=== PATIENT | female | born 1940 | race Caucasian/White ===

== ENCOUNTER 2019-06-01 12:44 | Inpatient (IN) | payer MEDICARE, BC ==
[2019-06-01] MEDS ORDERED: NS 0.9% 1000 ML** 1,000 ML IV ONE (12:50)
--- NOTE | 2019-06-01 12:55 | ED ---
Altered Mental Status - HPI Summary HPI Summary: This pt is a 79 Y/O F brought to [facility] for AMS per EMS. She is a level 5 caveat due to her AMS and inability to accurately express her thoughts. Currently she is tachycardic and unable to communicate efficiently or follow directions. She has a PMHx of DM. - History Of Current Complaint Chief Complaint: EDAltMentalStatus Stated Complaint: AMS Time Seen by Provider: 06/01/19 12:51 Hx Obtained From: EMS Hx From Patient Unobtainable Due To: Altered Mental Status Last Known Well Date: 05/31/2019 before sleep Onset/Duration: Still Present Timing: Constant Severity Currently: None Character: Confusion Aggravating Factor(s): Unknown Alleviating Factor(s): Unknown - Allergies/Home Medications Allergies/Adverse Reactions: Allergies Allergy/AdvReac Type Severity Reaction Status Date / Time MS Naproxen [Naproxen] Allergy Severe Difficulty Verified 10/17/13 08:37 Breathing MS NSAIDs [NSAIDs] Allergy Difficulty Verified 10/17/13 08:37 Breathing Home Medications: Home Medications Albuterol HFA INHALER* [Ventolin HFA Inhaler*] 2 puff INH Q4H PRN 06/01/19 [ History Confirmed 06/01/19] Clotrimazole/Betamethasone* [Lotrisone Cream*] 1 applic TOPICAL BID 06/01/19 [ History Confirmed 06/01/19] EPINEPHrine [Epinephrine] 0.3 mg INJ ONCE PRN 06/01/19 [History Confirmed ] Fluticasone NASAL SPRAY 50MCG* [Flonase NASAL SPRAY 50MCG*] 2 spray BOTH NARES DAILY 06/01/19 [History Confirmed 06/01/19] Fluticasone-Salmeterol 250-50* [Advair Diskus 250-50*] 1 puff INH BID PRN [History Confirmed 06/01/19] Furosemide TAB* [Lasix TAB*] 20 mg PO DAILY 06/01/19 [History Confirmed 06/01/19 ] Montelukast Sodium TAB* [Singulair TAB*] 10 mg PO DAILY PRN 06/01/19 [History Confirmed 06/01/19] Nadolol (NF) 10 mg PO DAILY 06/01/19 [History Confirmed 06/01/19] Spironolactone (NF) [Spironolactone 50 MG (NF)] 50 mg PO QAM 06/01/19 [History Confirmed 06/01/19] metFORMIN* [Glucophage 1000 MG TAB *] 1,000 mg PO BID 06/01/19 [History Confirmed 06/01/19] PMH/Surg Hx/FS Hx/Imm Hx Previously Healthy: No - PT IS A LEVEL 5 CAVEAT DUE TO AMS Endocrine/Hematology History: Reports: Hx Diabetes - METFORMIN Respiratory History: Reports: Hx Asthma Musculoskeletal History: Denies: Hx Scoliosis Sensory History: Reports: Hx Contacts or Glasses, Hx Hearing Aid - BILAT Opthamlomology History: Reports: Hx Contacts or Glasses Neurological History: Denies: Hx Headaches, Other Neuro Impairments/Disorders - Surgical History Surgical History: Yes Surgery Procedure, Year, and Place: CHOLECYSTECTOMY 2010 [place]. HYSTERECTOMY WITH APPY 1983 [facility] Hx Anesthesia Reactions: No - Social History Alcohol Use: None Substance Use Type: Reports: None Review of Systems - ROS Summary Review of Systems Summary: A FULL ROS IS UNOBTAINABLE DUE TO THE PT BEING A LEVEL 5 CAVEAT FOR AMS. Positive: Palpitations - tachycardiac Psychological: Other - confused All Other Systems Reviewed And Are Negative: No Physical Exam - Summary Physical Exam Summary: VITAL SIGNS: Reviewed. GENERAL: Patient is a well-developed and nourished female who is lying comfortable in the stretcher. Patient is not in any acute respiratory distress. HEAD AND FACE: No signs of trauma. No ecchymosis, hematomas or skull depressions. No sinus tenderness. EYES: PERRLA, EOMI x 2, No injected conjunctiva, no nystagmus. EARS: Hearing grossly intact. Ear canals and tympanic membranes are within normal limits. MOUTH: Oropharynx within normal limits. Dry oral mucosa NECK: Supple, trachea is midline, no adenopathy, no JVD, no carotid bruit, no c- spine tenderness, neck with full ROM. CHEST: Symmetric, no tenderness at palpation. LUNGS: Clear to auscultation bilaterally. No wheezing or crackles. CVS: Regular rate and rhythm, S1 and S2 present, no murmurs or gallops appreciated. ABDOMEN: Soft, non-tender. No signs of distention. No rebound, no guarding, and no masses palpated. Bowel sounds are normal. EXTREMITIES: FROM in all major joints, no edema, no cyanosis or clubbing. NEURO: Alert and not oriented. No acute neurological deficits. Speech is normal and follows commands. No slurred speech, no facial drooping, extremities motor reflexes intact, moving both legs, feet, arms. SKIN: Dry and warm. RECTAL: slight amount of gross blood. GCS: 14 (See included ratings). Triage Information Reviewed: Yes Vital Signs On Initial Exam: Temp Pulse Resp BP SpO2 FiO2 94.9 F 101 22 151/109 98 06/01/19 12:46 06/01/19 12:46 06/01/19 12:46 06/01/19 12:46 06/01/19 12:46 Vital Signs Reviewed: Yes Completion Of Physical Exam Limited Due To: Altered Mental Status, Level 5 - Salome Coma Scale Best Eye Response: 4 - Spontaneous Best Motor Response: 6 - Obeys Commands Best Verbal Response: 4 - Confused Coma Scale Total: 14 Procedures - Sedation Patient Received Moderate/Deep Sedation with Procedure: No Diagnostics - Laboratory Result Diagrams: 06/01/19 13:14 06/01/19 13:14 Lab Statement: Any lab studies that have been ordered have been reviewed, and results considered in the medical decision making process. - Radiology CXR Radiology Interpretation Completed By: Radiologist Summary of Radiographic Findings: NO ACTIVE CARDIOPULMONARY DISEASE IS NOTED. ED physician has reviewed this report. - CT Brain CT CT Interpretation Completed By: Radiologist Summary of CT Findings: There is no evidence of intracranial mass or hemorrhage. - ED physician has reviewed this report. - EKG 1341 Cardiac Rate: NL - 96 BPM EKG Rhythm: Sinus Rhythm ST Segment: Normal Ectopy: None Summary of EKG Findings: An EKG at 1341 reveals normal sinus rhythm 96 BPM, nml axis, nml intervals. No STEMI. No acute changes. Poor quality EKG. Interpreted by Dr. Daniel at 1346 06/01/2019. Altered Mental Statu Course/Dx - Course Assessment/Plan: This pt is a 79 Y/O F brought to [facility] for AMS per EMS. She is a level 5 caveat due to her AMS and inability to accurately express her thoughts. Currently she is tachycardic and unable to communicate efficiently or follow directions. She has a PMHx of DM. The physical without any significant abnormality except for potassium level of 5.1, chloride 112, carbon dioxide 20, BUN is 37, creatinine 1.34, glucose 131, lactic acid is 2.5, magnesium 1.8, total bili is 1.7, AST is 43, alkaline phosphatase is 153 and ammonia level 143. Urinalysis positive nitrates. Serum alcohol is 11. Head CT shows no acute intra-abdominal pathology. Chest x-ray shows no acute pathology. In the ED course the patient was given IV fluids, she was given Rocephin for the UTI and lactulose for the hepatic encephalopathy. I discussed the case with Dr. Schaefer from the intensive care unit and he will consult for this patient. Dr. Schaefer came and assessed the patient and recommended admission to the hospitalist services. I discuss my physical exam and test results with Dr. Christian from the hospitalist services and he agrees to admit the patient to his services. The patient is hemodynamically stable - Diagnoses Provider Diagnoses: UTI (urinary tract infection), Altered mental status, Hepatic encephalopathy, Hypothermia - Provider Notifications Discussed Care Of Patient With: Martin Christian Time Discussed With Above Provider: 17:27 Instructed by Provider To: Admit As Inpatient Admit/Transition Orders Completed By ED Provider: Yes - Critical Care Time Critical Care Time: 75-104 min - 40 minutes Discharge ED - Sign-Out/Discharge Documenting (check all that apply): Patient Departure - admitted to ICU - Discharge Plan Condition: Stable Disposition: ADMITTED TO [facility] Referrals: Mauri Gautam MD [Primary Care Provider] - - Billing Disposition and Condition Condition: STABLE Disposition: Admitted to [facility] - Attestation Statements Document Initiated by Scribe: Yes Documenting Scribe: Vinh Min Provider For Whom Trisha is Documenting (Include Credential): Frank Daniel MD Scribe Attestation: IVinh, scribed for Frank Daniel MD on 06/01/19 at 1826. Scribe Documentation Reviewed: Yes Provider Attestation: The documentation as recorded by the Vinh saunders accurately reflects the service I personally performed and the decisions made by me, Frank Daniel MD Status of Scribe Document: Viewed
[2019-06-01 13:31] LABS: INR 1.17 (0.82-1.09)
[2019-06-01 13:46] LABS: ALT 28 U/L (7-52); AST 43 U/L (13-39); Albumin 3.6 g/dL (3.2-5.2); Albumin/Globulin Ratio 0.9 (1-3); Alkaline Phosphatase 153 U/L (34-104); BUN/Creatinine Ratio 27.6 (8-20); Blood Urea Nitrogen 37 mg/dL (6-24); CO2 Carbon Dioxide 20 mmol/L (22-32); Calcium 9.6 mg/dL (8.6-10.3); Creatine Kinase 86 U/L (10-223); EGFR African American 46.3 (>60); EGFR Non-African American 38.3 (>60); Globulin 3.9 g/dL (2-4); Glucose 131 mg/dL (70-100); Magnesium 1.8 mg/dL (1.9-2.7); Sodium 141 mmol/L (135-145); Total Protein 7.5 g/dL (6.4-8.9)
[2019-06-01 13:55] LABS: Anion Gap 9 mmol/L (2-11); Chloride 112 mmol/L (101-111); Potassium 5.1 mmol/L (3.5-5.0)
[2019-06-01 14:13] LABS: Acetaminophen < 15 mcg/mL; Alcohol 11 mg/dL (<10); Salicylate < 2.50 mg/dL (<30)
[2019-06-01 14:19] LABS: Urine Benzodiazepine Screen None Detected (None Detect); Urine Opiates Screen None Detected (None Detect)
[2019-06-01 14:26] LABS: TSH (Thyroid Stimulating Horm) 4.32 mcIU/mL (0.34-5.60)
[2019-06-01 14:56] LABS: ABS Eosinophils 0.2 10^3/ul (0-0.6); ABS Lymphocytes 1.1 10^3/ul (1.0-4.8); ABS Monocytes 0.7 10^3/ul (0-0.8); Eosinophil % 2.7 %; Hematocrit 36 % (35-47); Hemoglobin 12.3 g/dL (12.0-16.0); Lymphocyte % 15.8 %; Mean Corpuscular HGB Conc 35 g/dL (31-36); Mean Corpuscular Hemoglobin 38 pg (27-31); Mean Corpuscular Volume 111 fL (80-97); Mean Platelet Volume 9.4 fL (7.4-10.4); Nucleated Red Blood Cells % 0.1; Platelet Count 110 10^3/uL (150-450); Red Blood Count 3.22 10^6 /uL (3.70-4.87); Red Cell Distribution Width 15 % (10-15)
[2019-06-01 15:52] LABS: Urine Appearance Cloudy; Urine Bacteria 1+ (Absent); Urine Bilirubin Negative (Negative); Urine Blood Negative (Negative); Urine Color Yellow; Urine Glucose Negative (Negative); Urine Ketones Negative (Negative); Urine Nitrite Positive (Negative); Urine Protein Negative (Negative); Urine Red Blood Cell Absent (Absent); Urine Specific Gravity 1.013 (1.010-1.030); Urine Squamous Epithelial Cell Present (Absent); Urine Urobilinogen Negative (Negative); Urine White Blood Cell 3+(>20/hpf) (Absent)
[2019-06-01] MEDS ORDERED: cefTRIAXone(*) 1 GM in NS 0.9% 50 ML* 50 ML IVPB ONE (16:07)
--- NOTE | 2019-06-01 17:56 | PN ---
Progress Note - Progress Note Date of Service: 06/01/19 Note: Was asked to see patient to evaluate for ICU admission. 79F who lives at an assisted living facility, presents with AMS. +UTI, ammonia 143. Upon exam, she is awake, alert, oriented x 2. Exam limited by expressive aphasia. PERRL 4mm, EOMI, no facial droop, no facial anesthesia, follows commands, Strength 5/5 in all extremities. Would recommend TSH and cortisol since patient slightly hypothermic on presentation. Give lactulose, rifaximin and continue treatment for UTI. Discussed the case with both Dr Daniel and Dr Qiu that patient does not require ICU level of care. Also, patient has a cat and dog at home who need to be cared for. Asked Dr Daniel to page social work to assist her with this.
[2019-06-01 18:23] LABS: C Reactive Protein 14.42 mg/L (<8.01)
[2019-06-01] MEDS ORDERED: Morphine INJ* 2 MG/ML 1 ML SYRINGE (TWO MG - NEW SYRINGE VERSION) IV PRN (18:34)
[2019-06-01] MEDS ORDERED: Dextrose 50% Syringe 50 ML* 25 GM/50 ML SYRINGE IV PUSH PRN (18:39)
[2019-06-01] MEDS ORDERED: Montelukast Sodium TAB* 10 MG PO PRN (18:40)
[2019-06-01] MEDS ORDERED: Albuterol HFA INHALER* 8 gm MDI INH PRN (18:40)
[2019-06-01] MEDS ORDERED: Mometasone/Formoter 200/5 MDI INH PRN (21:00)
--- NOTE | 2019-06-01 21:14 | HP ---
CC: Dr. Gautam * HISTORY AND PHYSICAL: DATE OF ADMISSION: 06/01/19 PRIMARY CARE PROVIDER: Dr. Gautam. CHIEF COMPLAINT: Found down, altered. HISTORY OF PRESENT ILLNESS: Krystal Christensen is a 79-year-old female who is a resident of [facility] where she lives in an independent [facility]. The patient currently is not really able to give me any clear-cut information apart from that she had been in [facility] for the past 2 years, but initially she thought she still lives at her home. After I called [facility], I got to know that she lives in independent living. Then, I contacted the patient 's sister, Bibi, who lives in [place] who stated that the patient has had problems with chronic diarrhea and chronic liver problems, in fact she has history of liver cancer and that tumor was treated with radiation just 3 weeks ago in [place]. The patient herself is able to give me some scant information. She does remember that she had radiation to her liver tumor 3 weeks ago, but otherwise she keeps on repeating the same sentences over and over again. She apparently was found down covered in feces on the floor and she was brought into the ED for evaluation. Her ammonia level was markedly elevated over 140 and likely her mentation is affected by hepatic encephalopathy. Her alcohol level in the serum is 11, but the patient adamantly denies that she ever drank alcohol and her sister agrees with that. I suspect that the alcohol level was elevated due to the way the sample was taken. The patient is going to be admitted with a diagnosis of hepatic encephalopathy to the medical floor. PAST MEDICAL HISTORY: Please note that this was obtained from very scant medical records that I have from [facility] and does include: 1. Diabetes type 2. 2. History of frequent UTIs. 3. Hypertension. 4. Hyperlipidemia. 5. Functional dyspepsia. 6. Hearing loss in the right ear. 7. Hypothyroidism. 8. Portal hypertension. 9. History of nonalcoholic steatohepatitis. 10. Asthma. 11. Generalized muscle weakness. 12. Low back pain. 13. Liver cancer, status post recent radiation. MEDICATIONS AT HOME: Include: 1. Clotrimazole with betamethasone cream topical b.i.d. 2. Furosemide 20 mg daily. 3. Metformin 1000 mg b.i.d. 4. Aldactone 50 mg daily. 5. Albuterol inhaler on a p.r.n. basis. 6. Flonase nasal spray on a p.r.n. basis. 7. Advair Diskus 250/50 one inhalation b.i.d. 8. Singulair 10 mg daily. 9. Nadolol 10 mg daily. FAMILY HISTORY: Unable to obtain due to the patient being altered. SOCIAL HISTORY: The patient denies drinking alcohol. She cannot tell me or elaborate about her smoking history. From what I was able to find out from calling the patient's assisted living residency. The patient actually is in an independent living [facility]. Her healthcare proxy, her sister, Deanna Carrillo, lives in [place]. Her phone number is [phone]. The patient is a full code. REVIEW OF SYSTEMS: Please see history of present illness. Otherwise, unobtainable. The patient currently denies any pain, but otherwise she is not a historian that is able to provide me with any other information. PHYSICAL EXAMINATION GENERAL: The patient is a pleasant 79-year-old female, who is in no acute distress. The patient is alert and oriented. Actually, she is able to give me the date that it is May of 2019. She is not really sure where she is. She does not remember where she lives, but when I prompted her, she was able to tell me that she has been staying at [facility] for the past 2 years. She is unable to tell me if it is independent living though. She is unable to give her sister's and healthcare proxy's name. She keeps on repeating the same information over and over again. When I asked about the date, she keeps on repeating May 2019. VITAL SIGNS: Blood pressure 137/84, heart rate of 96 and regular, respiratory rate 14, oxygen saturation 96% on room air, temperature of 99.0. Please also note that the patient was hypothermic when she arrived to the hospital with a temperature of 94.9 and she was treated with a Kamran Hugger. HEENT: Head: Atraumatic, normocephalic. Eyes: Pupils are equal, reactive to light and accommodation. Oropharynx is clear. Mucosa dry. NECK: Supple. No JVD. No bruits bilaterally. RESPIRATORY: Clear to auscultation bilaterally. CARDIOVASCULAR: Regular rate and rhythm. No murmur. ABDOMEN: Soft, nontender. Bowel sounds are present in all 4 quadrants. No hepatomegaly on palpation. EXTREMITIES: There is trace pedal edema bilaterally. Pulses are +2 bilaterally. There is no clubbing or cyanosis. NEUROLOGIC: Speech is clear. Cranial nerves II through XII grossly intact. Motor strength is 5/5 bilaterally. SKIN: On evaluation of the skin, no ecchymotic areas or rashes noted. DIAGNOSTIC STUDIES/LAB DATA: Please note that the patient is being admitted currently at around 7 p.m. and the labs were obtained at 1 p.m. and they showed sodium of 141, potassium 5.1, chloride 112, carbon dioxide 20, BUN 37, creatinine 1.34. Liver function tests showed bilirubin of 1.7, AST of 43, ALT of 28, alkaline phosphatase of 133. Those are consistent with prior reports from 2018. Lactic acid was elevated at 2.5. Ammonia of 143. TSH was 4.32. INR was noted to be 1.17. ABG showed pH of 7.44, pCO2 of 27, pO2 of 103, bicarb of 21.5. CBC: White blood cell count of 7.0, hemoglobin of 12.3, hematocrit of 36, and platelets of 110, which is consistent with prior chronic thrombocytopenia. MCV was 111. Toxicology screen was positive for serum alcohol of 11. Once again, it is likely a draw error. The patient's salicylates and acetaminophen below detectable. Urine drug screen was negative. Urinalysis showed cloudy urine with esterase of +2, wbc's +3, nitrite positive, positive bacteria. The patient's chest x-ray reviewed by myself and shows very poor inspiration and impression by the radiologist is "no active cardiopulmonary disease noted." The patient's brain CT also showed no abnormalities. EKG is pending at the time of dictation. The patient also was ordered CT of the abdomen and pelvis without contrast to rule out hydronephrosis and to evaluate for liver abnormalities. That is pending at the time of dictation also. ASSESSMENT AND PLAN: 1. Altered mentation. It is likely due to combination of hepatic encephalopathy and septic encephalopathy from urinary tract infection. She is going to be placed on lactulose and rifaximin. The patient also appears markedly dehydrated. Her diuretics are going to be held and she is going to be placed on intravenous hydration. 2. The patient appears to have a urinary tract infection and she is going to be placed on ceftriaxone empirically. She meets severe sepsis criteria. She is going to receive intravenous fluids. Blood cultures were already obtained. We will reevaluate with repeat lactic acid currently. 3. The patient has chronic thrombocytopenia with platelet level of 111. Nevertheless, we are able to place her on heparin subcutaneously for DVT prophylaxis. 4. The patient has acute renal failure likely due to sepsis and dehydration. Creatinine is 1.34. We will continue intravenous hydration and repeat the labs in the morning. 5. The patient has mild hyperkalemia. Her Aldactone is going to be held. She is going to be placed on intravenous fluids and we will recheck her levels in the morning. 6. The patient's code status was discussed with the patient's sister, Bibi, who wishes for the patient to continue a full code and MOLST was signed. 7. For the patient's asthma, the patient is not in exacerbation and she is going to be continued on inhalers on a p.r.n. basis. 8. In regards to the patient's diabetes, she is going to be placed on insulin sliding scale and metformin is going to be held. TIME SPENT: Approximately 72 minutes was spent on admission of this patient, more than half that time was spent [id number] with the patient during the interview and physical exam. [id number]/[facility] #: [id number] ELIANA
[2019-06-01] MEDS: Heparin VIAL(*) 5000 UNITS/ML VIAL (FIVE THOUSAND) SUBCUT SCH (21:58)
[2019-06-01] MEDS: RiFAXimin* 550 MG TAB PO SCH (21:58)
[2019-06-01] MEDS: Insulin LISPRO* 1 UNITS UNIT SUBCUT SCH (22:19)
[2019-06-01] MEDS: NS 0.9% 1000 ML** 1,000 ML IV SCH (23:41)
[2019-06-02 05:43] LABS: INR 1.35 (0.82-1.09)
[2019-06-02 05:45] LABS: ABS Basophils 0.1 10^3/ul (0-0.2); ABS Eosinophils 0.3 10^3/ul (0-0.6); ABS Monocytes 0.9 10^3/ul (0-0.8); ABS Neutrophils 4.8 10^3/ul (1.5-7.7); Eosinophil % 4.5 %; Hematocrit 31 % (35-47); Hemoglobin 10.9 g/dL (12.0-16.0); Lymphocyte % 14.3 %; Mean Corpuscular HGB Conc 35 g/dL (31-36); Mean Corpuscular Hemoglobin 38 pg (27-31); Mean Corpuscular Volume 110 fL (80-97); Mean Platelet Volume 8.4 fL (7.4-10.4); Platelet Count 107 10^3/uL (150-450); Red Blood Count 2.84 10^6 /uL (3.70-4.87); Red Cell Distribution Width 15 % (10-15); White Blood Count 7.1 10^3/uL (3.5-10.8)
[2019-06-02] MEDS: cefTRIAXone(*) 1 GM in NS 0.9% 50 ML* 50 ML IVPB SCH (06:05)
[2019-06-02] MEDS: Heparin VIAL(*) 5000 UNITS/ML VIAL (FIVE THOUSAND) SUBCUT SCH ×3 (06:05→21:16)
[2019-06-02] MEDS: Fluticasone NASAL SPRAY 50MCG* 16 gm SPRAY BTL BOTH NARES SCH (09:04)
[2019-06-02] MEDS: Nadolol TAB* 40 MG PO SCH (09:05)
[2019-06-02] MEDS: RiFAXimin* 550 MG TAB PO SCH ×2 (09:05→21:16)
[2019-06-02] MEDS: Insulin LISPRO* 1 UNITS UNIT SUBCUT SCH ×4 (09:05→21:16)
[2019-06-02 09:06] LABS: Albumin 3.1 g/dL (3.2-5.2); Calcium 9.1 mg/dL (8.6-10.3); Potassium 4.3 mmol/L (3.5-5.0); Total Bilirubin 1.9 mg/dL (0.2-1.0)
[2019-06-02 09:12] LABS: Albumin/Globulin Ratio 0.9 (1-3); BUN/Creatinine Ratio 28.4 (8-20); EGFR African American 54.7 (>60); EGFR Non-African American 45.2 (>60); Globulin 3.3 g/dL (2-4); Total Protein 6.4 g/dL (6.4-8.9)
[2019-06-02] MEDS: NS 0.9% 1000 ML** 1,000 ML IV SCH (13:23)
--- NOTE | 2019-06-02 14:14 | PN ---
Subjective Date of Service: 06/02/19 Interval History: Ms. Christensen is feeling better today. She is aware she is in the hospital and vaguely knows the circumstances surrounding the admission. She denies CP, SOB, confusion, N/V, abdominal pain. No concerns from nursing. Family History: Unchanged from Admission Social History: Unchanged from Admission Past Medical History: Unchanged from Admission Objective Active Medications: Albuterol (Ventolin Hfa Inhaler*) 2 puff INH Q4H PRN SOB/WHEEZING Dextrose (D50w Syringe 50 Ml*) 12.5 gm IV PUSH .FOR FS < 60 - SS PRN FS < 60 Fluticasone Propionate (Flonase Nasal [place] 50mcg*) 2 spray BOTH NARES DAILY [facility] Heparin Sodium (Porcine) (Heparin Vial(*)) 5,000 units SUBCUT Q8HR LUIS Sodium Chloride (Ns 0.9% 1000 Ml) 1,000 mls @ 100 mls/hr IV PER RATE LUIS Ceftriaxone Sodium 1 gm/ (Sodium Chloride) 50 mls @ 100 mls/hr IVPB Q24H [facility] Insulin Human Lispro (Humalog*) 0 units SUBCUT ACHS LUIS; Protocol Lactulose (Lactulose*) 30 ml PO QID LUIS Mometasone Furoate/Formoterol Fumar (Dulera 200/5 Mdi*) 2 puff INH BID Montelukast Sodium (Singulair Tab*) 10 mg PO DAILY PRN Allergy Symptoms Morphine Sulfate (Morphine Inj (Syringe))*) 1 mg IV Q4H PRN PAIN - SEVERE Nadolol (Corgard Tab*) 10 mg PO DAILY LUIS Rifaximin (Xifaxan*) 550 mg PO BID [facility] Vital Signs - 8 hr 06/02/19 06/02/19 06/02/19 07:15 07:43 11:40 Temperature 99 F 99 F Pulse Rate 87 84 Respiratory 18 16 16 Rate Blood Pressure 135/55 134/52 (mmHg) O2 Sat by Pulse 96 96 Oximetry Oxygen Devices in Use Now: None Appearance: Elderly female sitting in bed in NAD Ears/Nose/Mouth/Throat: Mucous Membranes Moist Neck: NL Appearance and Movements; NL JVP, Trachea Midline Respiratory: Symmetrical Chest Expansion and Respiratory Effort, Clear to Auscultation Cardiovascular: NL Sounds; No Murmurs; No JVD Abdominal: NL Sounds; No Tenderness; No Distention Extremities: No Edema Neurological: Alert and Oriented x 3 Lines/Tubes/Other Access: Clean, Dry and Intact Peripheral IV Nutrition: Taking PO's Result Diagrams: 06/02/19 05:27 06/02/19 05:13 Assess/Plan/Problems-Billing Assessment: Ms. Christensen is a 79 yo F with PMH of DM2, HTN, HLD, hypothyroidism, portal HTN, WEEMS, liver cancer s/p radiation; who presented to the ED with AMS and was found to have elevated ammonia and UTI. - Patient Problems (1) Hepatic encephalopathy Code(s): K72.90 - HEPATIC FAILURE, UNSPECIFIED WITHOUT COMA Comment: - History of WEEMS and liver cancer s/p radiation - Mild transaminitis; unclear if this is her baseline r/t liver disease or if this is acute; awaiting records from [place] - Ammonia elevated on admission, remains elevated today - Continue lactulose (dose increased), rifaximin (2) UTI (urinary tract infection) Comment: - Urine culture pending - Continue ceftriaxone (3) Septic encephalopathy Code(s): G93.41 - METABOLIC ENCEPHALOPATHY Comment: - Present on admission, now resolved (4) Severe sepsis Code(s): A41.9 - SEPSIS, UNSPECIFIED ORGANISM; R65.20 - SEVERE SEPSIS WITHOUT SEPTIC SHOCK Comment: - Resolved - Met criteria on admission with tachycardia and elevated lactic; source is UTI - No hypotension (5) Hypertension Code(s): I10 - ESSENTIAL (PRIMARY) HYPERTENSION Comment: - Normotensive - Continue nadolol (6) Diabetes mellitus, type 2 Comment: - Continue Lispro SS (7) Asthma Code(s): J45.909 - UNSPECIFIED ASTHMA, UNCOMPLICATED Comment: - Continue Dulera, Singulair (8) DVT prophylaxis Code(s): Z29.9 - ENCOUNTER FOR PROPHYLACTIC MEASURES, UNSPECIFIED Comment: - Heparin SQ (9) Full code status Code(s): Z78.9 - OTHER SPECIFIED HEALTH STATUS Comment: Status and Disposition: Inpatient. Anticipate d/c home when medically stable, likely 2-3 more days. Attending: Martin Christian
[2019-06-02] MEDS: Mometasone/Formoter 200/5 MDI INH SCH (19:02)
[2019-06-03] MEDS: cefTRIAXone(*) 1 GM in NS 0.9% 50 ML* 50 ML IVPB SCH (05:56)
[2019-06-03] MEDS: Heparin VIAL(*) 5000 UNITS/ML VIAL (FIVE THOUSAND) SUBCUT SCH ×3 (06:07→21:51)
[2019-06-03 06:44] LABS: Hematocrit 29 % (35-47); Hemoglobin 10.4 g/dL (12.0-16.0); Mean Corpuscular HGB Conc 36 g/dL (31-36); Mean Corpuscular Hemoglobin 40 pg (27-31); Mean Corpuscular Volume 112 fL (80-97); Red Blood Count 2.62 10^6 /uL (3.70-4.87); Red Cell Distribution Width 15 % (10-15); White Blood Count 6.6 10^3/uL (3.5-10.8)
[2019-06-03 06:54] LABS: ALT 24 U/L (7-52); AST 39 U/L (13-39); Albumin 3.1 g/dL (3.2-5.2); Albumin/Globulin Ratio 1.1 (1-3); Alkaline Phosphatase 89 U/L (34-104); BUN/Creatinine Ratio 25.2 (8-20); Blood Urea Nitrogen 29 mg/dL (6-24); CO2 Carbon Dioxide 20 mmol/L (22-32); Calcium 8.9 mg/dL (8.6-10.3); EGFR African American 55.2 (>60); EGFR Non-African American 45.6 (>60); Globulin 2.9 g/dL (2-4); Glucose 119 mg/dL (70-100); Potassium 4.1 mmol/L (3.5-5.0); Sodium 143 mmol/L (135-145)
[2019-06-03 06:56] LABS: Anion Gap 8 mmol/L (2-11); Chloride 115 mmol/L (101-111)
[2019-06-03] MEDS: Insulin LISPRO* 1 UNITS UNIT SUBCUT SCH ×4 (06:59→21:50)
[2019-06-03 07:11] LABS: ABS Eosinophils 0.3 10^3/ul (0-0.6); ABS Lymphocytes 1.1 10^3/ul (1.0-4.8); ABS Neutrophils 4.2 10^3/ul (1.5-7.7); Eosinophil % 4.3 %; Lymphocyte % 17.1 %; Mean Platelet Volume 8.6 fL (7.4-10.4); Platelet Count 89 10^3/uL (150-450)
[2019-06-03] MEDS: Mometasone/Formoter 200/5 MDI INH SCH ×2 (07:30→19:58)
[2019-06-03] MEDS: Fluticasone NASAL SPRAY 50MCG* 16 gm SPRAY BTL BOTH NARES SCH (08:43)
[2019-06-03] MEDS: Nadolol TAB* 40 MG PO SCH (08:43)
[2019-06-03] MEDS: RiFAXimin* 550 MG TAB PO SCH ×2 (08:43→21:50)
[2019-06-03 11:19] LABS: Folate > 20.00 ng/mL (>3.99)
--- NOTE | 2019-06-03 14:25 | PN ---
Subjective Date of Service: 06/03/19 Interval History: Ms. Christensen is feeling okay today. She is still feeling a bit confused and feeling as though she cannot think through things like normal. She does recall that she has been anemic in the past. Denies CP or SOB. No concerns from nursing. Family History: Unchanged from Admission Social History: Unchanged from Admission Past Medical History: Unchanged from Admission Objective Active Medications: Albuterol (Ventolin Hfa Inhaler*) 2 puff INH Q4H PRN SOB/WHEEZING Dextrose (D50w Syringe 50 Ml*) 12.5 gm IV PUSH .FOR FS < 60 - SS PRN FS < 60 Fluticasone Propionate (Flonase Nasal [place] 50mcg*) 2 spray BOTH NARES DAILY LUIS Heparin Sodium (Porcine) (Heparin Vial(*)) 5,000 units SUBCUT Q8HR LUIS Ceftriaxone Sodium 1 gm/ (Sodium Chloride) 50 mls @ 100 mls/hr IVPB Q24H LUIS Insulin Human Lispro (Humalog*) 0 units SUBCUT ACHS LUIS; Protocol Lactulose (Lactulose*) 30 ml PO QID LUIS Mometasone Furoate/Formoterol Fumar (Dulera 200/5 Mdi*) 2 puff INH BID LUIS Montelukast Sodium (Singulair Tab*) 10 mg PO DAILY PRN Allergy Symptoms Morphine Sulfate (Morphine Inj (Syringe))*) 1 mg IV Q4H PRN PAIN - SEVERE Nadolol (Corgard Tab*) 10 mg PO DAILY LUIS Rifaximin (Xifaxan*) 550 mg PO BID [facility] Vital Signs - 8 hr 06/03/19 06/03/19 06/03/19 06:45 07:21 07:31 Temperature 98.1 F Pulse Rate 63 74 Respiratory 16 16 18 Rate Blood Pressure 122/49 (mmHg) O2 Sat by Pulse 99 98 Oximetry 06/03/19 11:15 Temperature 97.7 F Pulse Rate 69 Respiratory 16 Rate Blood Pressure 119/45 (mmHg) O2 Sat by Pulse 99 Oximetry Oxygen Devices in Use Now: None Appearance: Elderly female sitting in chair in NAD Ears/Nose/Mouth/Throat: Mucous Membranes Moist Neck: NL Appearance and Movements; NL JVP, Trachea Midline Respiratory: Symmetrical Chest Expansion and Respiratory Effort, Clear to Auscultation Cardiovascular: NL Sounds; No Murmurs; No JVD, RRR Abdominal: NL Sounds; No Tenderness; No Distention Extremities: No Edema Neurological: Alert and Oriented x 3 Lines/Tubes/Other Access: Clean, Dry and Intact Peripheral IV Nutrition: Taking PO's Result Diagrams: 06/03/19 06:27 06/03/19 06:27 Assess/Plan/Problems-Billing Assessment: Ms. Christensen is a 79 yo F with PMH of DM2, HTN, HLD, hypothyroidism, portal HTN, WEEMS, liver cancer s/p radiation; who presented to the ED with AMS and was found to have elevated ammonia and UTI. - Patient Problems (1) Hepatic encephalopathy Code(s): K72.90 - HEPATIC FAILURE, UNSPECIFIED WITHOUT COMA Comment: - History of WEEMS and liver cancer s/p radiation - Mild transaminitis; unclear if this is her baseline r/t liver disease or if this is acute; awaiting records from [place] - Ammonia elevated on admission, slowly trending down - Continue lactulose, rifaximin (2) UTI (urinary tract infection) Comment: - Urine culture growing E. coli - Continue ceftriaxone (day 3/7) (3) Septic encephalopathy Code(s): G93.41 - METABOLIC ENCEPHALOPATHY Comment: - Present on admission, now resolved (4) Severe sepsis Code(s): A41.9 - SEPSIS, UNSPECIFIED ORGANISM; R65.20 - SEVERE SEPSIS WITHOUT SEPTIC SHOCK Comment: - Resolved - Met criteria on admission with tachycardia and elevated lactic; source is UTI - No hypotension (5) Hypertension Code(s): I10 - ESSENTIAL (PRIMARY) HYPERTENSION Comment: - Normotensive - Continue nadolol (6) Diabetes mellitus, type 2 Comment: - Continue Lispro SS (7) Asthma Code(s): J45.909 - UNSPECIFIED ASTHMA, UNCOMPLICATED Comment: - Continue Dulera, Singulair (8) DVT prophylaxis Code(s): Z29.9 - ENCOUNTER FOR PROPHYLACTIC MEASURES, UNSPECIFIED Comment: - Heparin SQ (9) Full code status Code(s): Z78.9 - OTHER SPECIFIED HEALTH STATUS Comment: Status and Disposition: Inpatient. Anticipate d/c home when medically stable, likely 1-2 more days. Attending: Martin Christian
[2019-06-04 05:37] LABS: ABS Basophils 0.1 10^3/ul (0-0.2); ABS Eosinophils 0.5 10^3/ul (0-0.6); ABS Lymphocytes 1.1 10^3/ul (1.0-4.8); ABS Monocytes 1.1 10^3/ul (0-0.8); ABS Neutrophils 4.3 10^3/ul (1.5-7.7); Hematocrit 29 % (35-47); Hemoglobin 9.8 g/dL (12.0-16.0); Lymphocyte % 16.1 %; Mean Corpuscular HGB Conc 34 g/dL (31-36); Mean Corpuscular Hemoglobin 38 pg (27-31); Mean Corpuscular Volume 112 fL (80-97); Mean Platelet Volume 8.6 fL (7.4-10.4); Nucleated Red Blood Cells % 0.1; Platelet Count 94 10^3/uL (150-450); Red Blood Count 2.58 10^6 /uL (3.70-4.87); Red Cell Distribution Width 15 % (10-15)
[2019-06-04 05:46] LABS: BUN/Creatinine Ratio 28.6 (8-20); Calcium 8.7 mg/dL (8.6-10.3); EGFR African American 66.4 (>60); EGFR Non-African American 54.9 (>60); Globulin 2.9 g/dL (2-4); Potassium 3.9 mmol/L (3.5-5.0); Total Bilirubin 1.8 mg/dL (0.2-1.0); Total Protein 5.9 g/dL (6.4-8.9)
[2019-06-04] MEDS: cefTRIAXone(*) 1 GM in NS 0.9% 50 ML* 50 ML IVPB SCH (05:46)
[2019-06-04] MEDS: Heparin VIAL(*) 5000 UNITS/ML VIAL (FIVE THOUSAND) SUBCUT SCH (05:46)
[2019-06-04] MEDS: Insulin LISPRO* 1 UNITS UNIT SUBCUT SCH ×4 (07:01→20:54)
[2019-06-04] MEDS: Mometasone/Formoter 200/5 MDI INH SCH ×2 (08:34→19:18)
[2019-06-04] MEDS ORDERED: Acetaminophen TAB* 325 MG PO PRN (08:53)
[2019-06-04] MEDS: Fluticasone NASAL SPRAY 50MCG* 16 gm SPRAY BTL BOTH NARES SCH (10:15)
[2019-06-04] MEDS: RiFAXimin* 550 MG TAB PO SCH ×2 (10:16→20:54)
[2019-06-04] MEDS: Nadolol TAB* 40 MG PO SCH (10:16)
[2019-06-04] MEDS: Witch Hazel PAD* JAR TOPICAL SCH (12:42)
[2019-06-04] MEDS: Furosemide TAB* 20 MG PO SCH (16:09)
[2019-06-04] MEDS: Spironolactone TAB* 25 MG PO SCH (16:09)
--- NOTE | 2019-06-04 17:36 | PN ---
Subjective Date of Service: 06/04/19 Interval History: Ms. Christensen is feeling better today, but still feeling confused. She feels as though she "has all the information, but cannot connect things" in her mind. She is having frequent diarrhea secondary to lactulose. Denies CP, SOB. No concerns from nursing. Family History: Unchanged from Admission Social History: Unchanged from Admission Past Medical History: Unchanged from Admission Objective Active Medications: Acetaminophen (Tylenol Tab*) 650 mg PO Q4H PRN PAIN - MILD Albuterol (Ventolin Hfa Inhaler*) 2 puff INH Q4H PRN SOB/WHEEZING Cyanocobalamin (Vitamin B12 Tab*) 1,000 mcg PO DAILY LUIS Dextrose (D50w Syringe 50 Ml*) 12.5 gm IV PUSH .FOR FS < 60 - SS PRN FS < 60 Fluticasone Propionate (Flonase Nasal [place] 50mcg*) 2 spray BOTH NARES DAILY LUIS Furosemide (Lasix Tab*) 20 mg PO DAILY LUIS Ceftriaxone Sodium 1 gm/ (Sodium Chloride) 50 mls @ 100 mls/hr IVPB Q24H LUIS Insulin Human Lispro (Humalog*) 0 units SUBCUT ACHS LUIS; Protocol Lactulose (Lactulose*) 30 ml PO QID LUIS Mometasone Furoate/Formoterol Fumar (Dulera 200/5 Mdi*) 2 puff INH BID LUIS Montelukast Sodium (Singulair Tab*) 10 mg PO DAILY PRN Allergy Symptoms Morphine Sulfate (Morphine Inj (Syringe))*) 1 mg IV Q4H PRN PAIN - SEVERE Nadolol (Corgard Tab*) 10 mg PO DAILY LUIS Rifaximin (Xifaxan*) 550 mg PO BID LUIS Spironolactone (Aldactone Tab*) 50 mg PO QAM LUIS Witch Janae (Tucks*) 1 pad TOPICAL DAILY LUIS Vital Signs - 8 hr 06/04/19 06/04/19 06/04/19 09:52 11:26 15:15 Temperature 97.8 F 97.6 F 98.2 F Pulse Rate 66 61 61 Respiratory 14 14 12 Rate Blood Pressure 136/53 119/50 144/56 (mmHg) O2 Sat by Pulse 98 100 100 Oximetry Oxygen Devices in Use Now: None Appearance: Elderly female sitting in chair in NAD Ears/Nose/Mouth/Throat: Mucous Membranes Moist Neck: NL Appearance and Movements; NL JVP, Trachea Midline Respiratory: Symmetrical Chest Expansion and Respiratory Effort, Clear to Auscultation Cardiovascular: NL Sounds; No Murmurs; No JVD, RRR Abdominal: NL Sounds; No Tenderness; No Distention Extremities: No Edema Neurological: Alert and Oriented x 3 Lines/Tubes/Other Access: Clean, Dry and Intact Peripheral IV Nutrition: Taking PO's Result Diagrams: 06/04/19 05:18 06/04/19 05:18 Assess/Plan/Problems-Billing Assessment: Ms. Christensen is a 79 yo F with PMH of DM2, HTN, HLD, hypothyroidism, portal HTN, WEEMS, liver cancer s/p radiation; who presented to the ED with AMS and was found to have elevated ammonia and UTI. - Patient Problems (1) Hepatic encephalopathy Code(s): K72.90 - HEPATIC FAILURE, UNSPECIFIED WITHOUT COMA Comment: - History of WEEMS and liver cancer s/p radiation - Mild transaminitis on admission, now resolved except for elevated total bili which is at baseline - Ammonia elevated on admission, slowly trending down - Continue lactulose, rifaximin (2) Anemia Code(s): D64.9 - ANEMIA, UNSPECIFIED Comment: - H&H trended down since admission, not anemic at baseline - Patient reports hemorrhoids are flaring for the last couple days (chronic problem), but seems unlikely that this drop in H&H is only d/t hemorrhoids - First stool occult positive, second negative; will check another occult as there is no outright GI bleeding except for hemorrhoids and the patient is having frequent BMs d/t lactulose - Vitamin B12 level borderline low and patient reports tingling in bilat toes for the last few months, so suspect some of this is attributable to B12 deficiency - Trend CBC (3) UTI (urinary tract infection) Comment: - Urine culture growing E. coli - Continue ceftriaxone (day 4/7) (4) Septic encephalopathy Code(s): G93.41 - METABOLIC ENCEPHALOPATHY Comment: - Present on admission, now resolved (5) Severe sepsis Code(s): A41.9 - SEPSIS, UNSPECIFIED ORGANISM; R65.20 - SEVERE SEPSIS WITHOUT SEPTIC SHOCK Comment: - Resolved - Met criteria on admission with tachycardia and elevated lactic; source is UTI - No hypotension (6) Hypertension Code(s): I10 - ESSENTIAL (PRIMARY) HYPERTENSION Comment: - Normotensive - Continue nadolol (7) Diabetes mellitus, type 2 Comment: - Continue Lispro SS (8) Asthma Code(s): J45.909 - UNSPECIFIED ASTHMA, UNCOMPLICATED Comment: - Continue Omayra Thapair (9) DVT prophylaxis Code(s): Z29.9 - ENCOUNTER FOR PROPHYLACTIC MEASURES, UNSPECIFIED Comment: - SCDs only d/t concern for blood loss (10) Full code status Code(s): Z78.9 - OTHER SPECIFIED HEALTH STATUS Comment: Status and Disposition: Inpatient. Anticipate d/c home when medically stable. Attending: Martin Christian
[2019-06-05 05:50] LABS: ABS Eosinophils 0.3 10^3/ul (0-0.6); ABS Neutrophils 4.6 10^3/ul (1.5-7.7); Eosinophil % 4.1 %; Hematocrit 29 % (35-47); Hemoglobin 9.8 g/dL (12.0-16.0); Lymphocyte % 14.1 %; Mean Corpuscular HGB Conc 34 g/dL (31-36); Mean Corpuscular Hemoglobin 38 pg (27-31); Mean Corpuscular Volume 111 fL (80-97); Mean Platelet Volume 8.1 fL (7.4-10.4); Platelet Count 102 10^3/uL (150-450); Red Blood Count 2.57 10^6 /uL (3.70-4.87); Red Cell Distribution Width 14 % (10-15); White Blood Count 6.9 10^3/uL (3.5-10.8)
[2019-06-05 05:51] LABS: BUN/Creatinine Ratio 24.5 (8-20); Calcium 8.6 mg/dL (8.6-10.3); EGFR African American 63.4 (>60); EGFR Non-African American 52.4 (>60); Potassium 3.8 mmol/L (3.5-5.0)
[2019-06-05] MEDS: cefTRIAXone(*) 1 GM in NS 0.9% 50 ML* 50 ML IVPB SCH (06:38)
[2019-06-05] MEDS: Insulin LISPRO* 1 UNITS UNIT SUBCUT SCH ×4 (07:49→22:00)
[2019-06-05] MEDS: Mometasone/Formoter 200/5 MDI INH SCH ×2 (08:29→20:35)
[2019-06-05] MEDS: Spironolactone TAB* 25 MG PO SCH (09:30)
[2019-06-05] MEDS: Furosemide TAB* 20 MG PO SCH (09:30)
[2019-06-05] MEDS: Nadolol TAB* 40 MG PO SCH (09:31)
[2019-06-05] MEDS: Cyanocobalamin TAB* 500 MCG PO SCH (09:32)
[2019-06-05] MEDS: Witch Hazel PAD* JAR TOPICAL SCH (09:32)
[2019-06-05] MEDS: RiFAXimin* 550 MG TAB PO SCH ×2 (09:33→22:00)
[2019-06-05] MEDS: Fluticasone NASAL SPRAY 50MCG* 16 gm SPRAY BTL BOTH NARES SCH (09:33)
--- NOTE | 2019-06-05 11:05 | PN ---
Subjective Date of Service: 06/05/19 Interval History: Ms. Christensen is feeling tired this morning. She is overall feeling better, still a bit fuzzy mentally. She denies abdominal pain, CP, SOB. She does think her abdomen is distended, similar to what she has experienced in the past. No concerns from nursing. Family History: Unchanged from Admission Social History: Unchanged from Admission Past Medical History: Unchanged from Admission Objective Active Medications: Acetaminophen (Tylenol Tab*) 650 mg PO Q4H PRN PAIN - MILD Albuterol (Ventolin Hfa Inhaler*) 2 puff INH Q4H PRN SOB/WHEEZING Cyanocobalamin (Vitamin B12 Tab*) 1,000 mcg PO DAILY LUIS Dextrose (D50w Syringe 50 Ml*) 12.5 gm IV PUSH .FOR FS < 60 - SS PRN FS < 60 Fluticasone Propionate (Flonase Nasal [place] 50mcg*) 2 spray BOTH NARES DAILY LUIS Furosemide (Lasix Tab*) 20 mg PO DAILY LUIS Ceftriaxone Sodium 1 gm/ (Sodium Chloride) 50 mls @ 100 mls/hr IVPB Q24H [facility] Insulin Human Lispro (Humalog*) 0 units SUBCUT ACHS LUIS; Protocol Lactulose (Lactulose*) 30 ml PO QID LUIS Mometasone Furoate/Formoterol Fumar (Dulera 200/5 Mdi*) 2 puff INH BID LUIS Montelukast Sodium (Singulair Tab*) 10 mg PO DAILY PRN Allergy Symptoms Morphine Sulfate (Morphine Inj (Syringe))*) 1 mg IV Q4H PRN PAIN - SEVERE Nadolol (Corgard Tab*) 10 mg PO DAILY LUIS Rifaximin (Xifaxan*) 550 mg PO BID LUIS Spironolactone (Aldactone Tab*) 50 mg PO QAM LUIS Witch Janae (Tucks*) 1 pad TOPICAL DAILY LUIS Vital Signs - 8 hr 06/05/19 06/05/19 06/05/19 03:17 07:10 08:30 Temperature 97.7 F 98.9 F Pulse Rate 73 68 68 Respiratory 16 20 14 Rate Blood Pressure 124/45 104/41 (mmHg) O2 Sat by Pulse 96 96 96 Oximetry 06/05/19 09:30 Temperature Pulse Rate 74 Respiratory Rate Blood Pressure 119/46 (mmHg) O2 Sat by Pulse Oximetry Oxygen Devices in Use Now: None Appearance: Elderly female lying in bed in NAD Ears/Nose/Mouth/Throat: Mucous Membranes Moist Neck: NL Appearance and Movements; NL JVP, Trachea Midline Respiratory: Symmetrical Chest Expansion and Respiratory Effort, Clear to Auscultation Cardiovascular: NL Sounds; No Murmurs; No JVD, RRR Abdominal: - - SNT, distended Extremities: No Edema Neurological: Alert and Oriented x 3 Lines/Tubes/Other Access: Clean, Dry and Intact Peripheral IV Nutrition: Taking PO's Result Diagrams: 06/05/19 05:29 06/05/19 05:29 Assess/Plan/Problems-Billing Assessment: Ms. Christensen is a 79 yo F with PMH of DM2, HTN, HLD, hypothyroidism, portal HTN, WEEMS, liver cancer s/p radiation; who presented to the ED with AMS and was found to have elevated ammonia and UTI. - Patient Problems (1) Hepatic encephalopathy Code(s): K72.90 - HEPATIC FAILURE, UNSPECIFIED WITHOUT COMA Comment: - History of WEEMS and liver cancer s/p radiation - Mild transaminitis on admission, now resolved except for elevated total bili which is at baseline - Ammonia elevated on admission, slowly trending down - Continue lactulose, rifaximin (2) Anemia Code(s): D64.9 - ANEMIA, UNSPECIFIED Comment: - H&H trended down since admission, not anemic at baseline; according to outpatient labs, H&H on 05/17/19 was 11&35 - Patient reports hemorrhoids are flaring for the last couple days (chronic problem), but seems unlikely that this drop in H&H is only d/t hemorrhoids - First stool occult positive, second and third are negative; no outright GI bleeding except for hemorrhoids - Vitamin B12 level borderline low and patient reports tingling in bilat toes for the last few months, so suspect some of this is attributable to B12 deficiency - Appreciate GI consult - Continue vitamin B12 (3) UTI (urinary tract infection) Comment: - Urine culture growing E. coli - Continue ceftriaxone (day 5/7) (4) Nonalcoholic steatohepatitis (WEEMS) Code(s): K75.81 - NONALCOHOLIC STEATOHEPATITIS (WEEMS) Comment: - Continue spironolactone, furosemide (5) Liver cancer Code(s): C22.9 - MALIG NEOPLASM OF LIVER, NOT SPECIFIED PRIMARY OR SEC Comment: - S/p radiation - Follows with Dr. Flores in [place] (6) Septic encephalopathy Code(s): G93.41 - METABOLIC ENCEPHALOPATHY Comment: - Present on admission, now resolved (7) Severe sepsis Code(s): A41.9 - SEPSIS, UNSPECIFIED ORGANISM; R65.20 - SEVERE SEPSIS WITHOUT SEPTIC SHOCK Comment: - Resolved - Met criteria on admission with tachycardia and elevated lactic; source is UTI - No hypotension (8) Hypertension Code(s): I10 - ESSENTIAL (PRIMARY) HYPERTENSION Comment: - Normotensive - Continue nadolol (9) Diabetes mellitus, type 2 Comment: - Continue Lispro SS (10) Asthma Code(s): J45.909 - UNSPECIFIED ASTHMA, UNCOMPLICATED Comment: - Continue Dulera, Singulair (11) DVT prophylaxis Code(s): Z29.9 - ENCOUNTER FOR PROPHYLACTIC MEASURES, UNSPECIFIED Comment: - SCDs only in the setting of new anemia (12) Full code status Code(s): Z78.9 - OTHER SPECIFIED HEALTH STATUS Comment: Status and Disposition: Inpatient. Anticipate d/c home when medically stable. Attending: Christie Alexander
--- NOTE | 2019-06-05 19:42 | CONS ---
GASTROENTEROLOGY CONSULT: DATE: 06/05/19 CONSULTING PHYSICIANS: Dr. Leandra Alexis, Dr. Kong Petty. REASON FOR CONSULTATION: The patient with underlying WEEMS, admitted confused with elevated ammonia and subsequently found to be anemic with admitting hemoglobin of 12.3 falling to 9.8 and then revealing a history of recurring rectal bleeding that has been worked up through the [facility] system last fall. HISTORY: This 79-year-old woman has been diabetic since 2000. It apparently has never been insulin requiring as she came in this time on Glucophage 1000 b.i.d. and also diuretics. A couple of years ago, she was told there were liver issues. She is not really sure of the details. A scan of the liver showed a mass lesion and she was referred to [place] where she has had radiation treatment. She has not received any specific generalized liver treatment. Again, she is quite vague on all of this. She has been having some bright red rectal bleeding and Dr. Posey did a colonoscopy possibly last December and was told she had hemorrhoids and suppositories could be used. She has probably had 4 to 5 colonoscopies through the [facility] system. She does not recall having upper endoscopy. Her admitting medications did not include any lactulose. She had been found in her apartment at [place] with depressed mental status, fecally soiled. Her EtOH level in the ER was 11 mg/dL. PAST MEDICAL HISTORY: 1. Cirrhosis - presumably due to WEEMS, although other factors remain open. Her primary records may reveal something. There is no mention of alcohol in 2014 office note scanned into the record. 2. History of reactive airways disease - on Singulair for at least 20 years. 3. Diabetes - never on insulin. 4. History of liver cancer - she had 10 consecutive days of radiation treatment last October, staying at a hospital [facility] residence during that time. 5. Obesity. 6. Dyslipidemia. MEDICATIONS: Outpatient meds include: 1. Nadolol. 2. Aldactone. 3. Furosemide. SOCIAL HISTORY: She has lived in [place] many years, but has had all her care through the [facility] system except for some cataracts here. There are very few records in the hospital system. She has a sister in [place]. She is single, has no children. She is a nonsmoker. The question of alcohol has been discussed in Dr. Alexis's history and physical questioning a lab artifact. REVIEW OF SYSTEMS: No history of seizure, CVA, GA, syncope, palpitations, valvular disease, hemoptysis, or prior overt GI bleeding. No history of renal stones, hepatitis, or prior abdominal surgery. Details of the [facility] evaluation are unknown. EXAM: She is an elderly woman, a little bit sleepy and somnolent, in no acute distress. She is oriented to person and place, but answers very slowly to virtually all questions, changing her initial answer in most cases. She, however, has normal cranial nerves and equal strength in all 4 extremities. She has no asterixis. Gait was not tested. HEENT exam is unremarkable. Her lungs are clear and heart sounds regular. The abdomen is rounded with considerable fat roll. There are no visible collaterals. Rectal: Deferred. Extremities show no edema. LABS: On the fourth hospital day, hemoglobin 9.8, MCV 111, platelet count 102, white count 6.9. INR 1.35. BUN 25, creatinine 1.02. Albumin 3.0. B12 203. TSH 4.32. Toxicology screen was negative apart from the ethanol. HOSPITAL COURSE: She received fair amount of IV fluid initially. The lactulose was started and she has had some loose stools on that account. On day 1, stool was heme-positive, but on days 3 and 4, Hemoccult was negative. The last 2 days, her hemoglobin has been 9.8, steady. She has had no abdominal pain complaint. Her mentation has cleared up, but does not appear completely lucid. IMPRESSION: This woman with cirrhosis due to nonalcoholic steatohepatitis and with an unspecified neoplastic process in the liver that has been treated in [place] has the impression that everything is stable in that regard at the moment. She does have considerable manifestations of portal hypertension with a little bit of ascites on CT and hepatic encephalopathy. Her ability to function in independent living is in question. Her rectal bleeding is not active at the moment. It has been evaluated it would appear thoroughly as an outpatient given several sequential colonoscopies including one 6 months ago. The anemia she has is probably mostly due to anemia of chronic disease. There could be some slight intermittent bleeding from portal hypertensive gastropathy. She may very well have had an EGD elsewhere in the last couple of years. It will help considerably for future care where she will presumably come to this emergency room to get as much of the records from [place] and the [facility] system as possible. Nothing acutely needs to be done at the moment. Assessment for her ability to perform her ADLs is still pending. [id number]/CPS #: [id number] ELIANA
[2019-06-06] MEDS: cefTRIAXone(*) 1 GM in NS 0.9% 50 ML* 50 ML IVPB SCH (05:51)
[2019-06-06 06:13] LABS: ABS Eosinophils 0.3 10^3/ul (0-0.6); ABS Lymphocytes 0.9 10^3/ul (1.0-4.8); ABS Monocytes 1.1 10^3/ul (0-0.8); ABS Neutrophils 4.9 10^3/ul (1.5-7.7); Eosinophil % 4.5 %; Hematocrit 29 % (35-47); Lymphocyte % 12.3 %; Mean Corpuscular HGB Conc 35 g/dL (31-36); Mean Corpuscular Hemoglobin 39 pg (27-31); Mean Corpuscular Volume 111 fL (80-97); Mean Platelet Volume 8.3 fL (7.4-10.4); Platelet Count 109 10^3/uL (150-450); Red Blood Count 2.58 10^6 /uL (3.70-4.87); Red Cell Distribution Width 14 % (10-15); White Blood Count 7.1 10^3/uL (3.5-10.8)
[2019-06-06 06:16] LABS: Albumin 2.9 g/dL (3.2-5.2); BUN/Creatinine Ratio 25.8 (8-20); Calcium 8.9 mg/dL (8.6-10.3); EGFR African American 67.2 (>60); EGFR Non-African American 55.5 (>60); Total Protein 5.9 g/dL (6.4-8.9)
[2019-06-06] MEDS: Mometasone/Formoter 200/5 MDI INH SCH ×2 (07:29→19:53)
[2019-06-06] MEDS: Insulin LISPRO* 1 UNITS UNIT SUBCUT SCH ×4 (08:34→20:54)
[2019-06-06] MEDS: Spironolactone TAB* 25 MG PO SCH (08:51)
[2019-06-06] MEDS: Furosemide TAB* 20 MG PO SCH (08:51)
[2019-06-06] MEDS: Cyanocobalamin TAB* 500 MCG PO SCH (08:51)
[2019-06-06] MEDS: Nadolol TAB* 40 MG PO SCH (08:52)
[2019-06-06] MEDS: RiFAXimin* 550 MG TAB PO SCH ×2 (08:54→20:38)
[2019-06-06] MEDS: Fluticasone NASAL SPRAY 50MCG* 16 gm SPRAY BTL BOTH NARES SCH (08:55)
[2019-06-06] MEDS: Witch Hazel PAD* JAR TOPICAL SCH (08:55)
--- NOTE | 2019-06-06 21:24 | DS ---
CC: Dr. Mauri Gautam* DISCHARGE SUMMARY: DATE OF ADMISSION: 06/01/19 DATE OF DISCHARGE: 06/07/19 (this is being dictated 1 day in advance). PRIMARY CARE PROVIDER: Dr. Mauri Gautam. ATTENDING PHYSICIAN: Dr. Christie Vincent* (dictated by Dennise Gaston NP). PRIMARY DIAGNOSES: 1. Hepatic encephalopathy. 2. Anemia of unclear etiology. 3. Urinary tract infection. 4. Severe sepsis. 5. Septic encephalopathy. 6. Acute kidney injury. SECONDARY DIAGNOSES: 1. Nonalcoholic steatohepatitis. 2. Liver cancer, status post radiation. 3. Hypertension. 4. Diabetes mellitus type 2. 5. Asthma. STUDIES WHILE IN THE HOSPITAL: 1. Brain CT on 06/01/19 reads as there is no evidence of intracranial mass or hemorrhage. 2. Chest x-ray on 06/01/19 reads as no active cardiopulmonary disease. 3. Abdomen and pelvis CT on 06/01/19 reads as Maloney catheter is present in the urinary bladder. The urinary bladder appears otherwise unremarkable. There was colonic diverticulosis without evidence for acute diverticulitis. There is mild ascites and diffuse mesenteric edema. There is somewhat nodular contour of the liver suspicious for hepatic cirrhosis. No visible renal, ureteral, or bladder calculi, and no hydronephrosis. 4. EKG on 06/01/19 shows normal sinus rhythm with a rate of 97. CONSULTATIONS WHILE IN THE HOSPITAL: Dr. Churchill from Gastroenterology. HISTORY OF PRESENT ILLNESS AND HOSPITAL COURSE: Ms. Christensen is a 79-year-old female with past medical history of diabetes, frequent UTIs, hypertension, WEEMS , asthma, liver cancer status post radiation, who presented to the emergency room on 06/01/19 after being found down at her home with altered mental status. Dia see the history and physical by Dr. Alexis for complete summary of the events leading up to this hospitalization. In short, the patient lives in independent living at [facility] and she was noted to have liver cancer, status post radiation, most recently 3 weeks ago in [place]. She had been doing well since that time, but apparently was found down at [facility] on the floor. In the emergency room, she was noted to have elevated ammonia at 143 and elevated lactic 2.5. Because of these findings and the concern for hepatic encephalopathy, the patient was admitted by the hospitalist service. She was placed on lactulose and rifaximin and given IV hydration. She was noted to have a UTI. Urine culture ultimately grew E. coli. As of the day of discharge, the patient will have completed a 7-day course of antibiotics here in the hospital and will not need any further antibiotics for this urinary tract infection. Regarding her hepatic encephalopathy, mental status has improved with lactulose and rifaximin, and over the last few days, ammonia has been stable in the 60s. The patient sometimes has some difficulty recalling information, though was generally mentating well. It is unclear what sparked this event of hepatic encephalopathy, though it certainly could have been triggered by this urinary tract infection. The patient was in severe sepsis on admission with an elevated lactic that resolved with IV fluids and antibiotics. She did have some acute kidney injury on admission as well, which has also resolved with IV fluids. On admission, she was not anemic, though she has been anemic since the day after admission. I suspect that the patient likely was anemic prior to coming into the hospital. She did have an outpatient H and H in May, which was 11 and 35, so I think that the fact that she was not anemic on admission was secondary to hemoconcentration. She did have 1 positive stool occult, though then had 2 negative stool occults. I did have Gastroenterology see the patient. Dr. Churchill did see her on 06/05/19 and at that point advised that there was no urgent need for scoping necessary and it did not appear as though the patient was actively bleeding. He recommended outpatient followup. She was noted to be macrocytic and she does have a borderline low B12 level, so she was started on B12 supplementation as this may be playing some role in the anemia. She is additionally noted to have chronic hemorrhoids, which she reports are exacerbated at this time due to frequent bowel movements from lactulose. At this point, labs have remained stable as of 06/06/19. H and H was 10 and 29, ammonia was 66. PHYSICAL EXAMINATION: On exam, the patient is alert and oriented x4, though can be somewhat slow to answer questions. There are no focal neurological deficits. Heart has a regular rate and rhythm without murmurs, rubs, or gallops. Lungs are clear to auscultation without rhonchi, wheezes, or rales. There is no edema. Abdomen is mildly distended, but soft, nontender. No significant ascites noted. Mild nonpitting lower extremity edema is present. Ms. Christensen is stable for discharge. Most recent vitals are as follows: Temp 97.4, heart rate 56, respiratory rate 15, oxygen saturation 99% on room air, blood pressure 115/50. DISCHARGE MEDICATIONS: New: 1. Acetaminophen 650 mg p.o. q.4 hours p.r.n. fever or pain. 2. Vitamin B12 1000 mcg p.o. daily. 3. Lactulose 30 mL p.o. q.i.d. 4. Rifaximin 550 mg p.o. b.i.d. 5. Witch berto pads 1 pad topically daily to hemorrhoids. Continued: 1. Albuterol 2 puffs q.4 hours p.r.n. shortness of breath or wheezing. 2. Flonase 2 sprays both nares daily. 3. Advair 250/50 one puff b.i.d. 4. Furosemide 20 mg p.o. daily. 5. Singulair 10 mg p.o. daily p.r.n. allergy symptoms. 6. Nadolol 10 mg p.o. daily. 7. Spironolactone 50 mg p.o. daily. 8. Clotrimazole/betamethasone 1 application topically b.i.d. 9. EpiPen 0.3 mg IM once p.r.n. allergic reaction. 10. Metformin 1000 mg p.o. b.i.d. DISCHARGE PLAN: Ms. Christensen will be discharged back to [facility]. She was living in independent living. She will now be going to their care home section for the time being. Activity will be as tolerated. Diet will be regular as tolerated. Medications are noted above. The patient should continue rifaximin and lactulose unless otherwise instructed by her primary care provider or breaker layer. She should be taking daily B12 supplementation. She can continue her other usual home medications. She will need close followup with her PCP. I would recommend that she see her PCP in the next 4 to 7 days. She will additionally need close followup with her breaker layer. It is unclear when the patient last saw her breaker layer, though due to her liver disease and now possible gastrointestinal bleeding, close followup will be necessary. She should return to the emergency room or nearest hospital for any worsening of symptoms, shortness of breath, lightheadedness, dizziness, chest discomfort, high fevers, chills, night sweats, loss of consciousness, or any other worrisome signs or symptoms. DISCHARGE CONDITION: Stable. DISCHARGE DISPOSITION: senior living facility, [facility]. This is a summarized report of a complex medical history and hospital stay. For further details, please see the entire medical record. TIME SPENT: Approximately 50 minutes was spent on this discharge. DENNISE GASTON, CAFE COOK [id number]/CPS #: [id number] ELIANA
[2019-06-07] MEDS ORDERED: Witch Hazel PAD* JAR TOPICAL PRN (00:14)
[2019-06-07] MEDS: cefTRIAXone(*) 1 GM in NS 0.9% 50 ML* 50 ML IVPB SCH (05:41)
[2019-06-07] MEDS: Mometasone/Formoter 200/5 MDI INH SCH (07:13)
[2019-06-07] MEDS: Insulin LISPRO* 1 UNITS UNIT SUBCUT SCH ×2 (07:55→12:44)
[2019-06-07] MEDS: Spironolactone TAB* 25 MG PO SCH (09:12)
[2019-06-07] MEDS: Nadolol TAB* 40 MG PO SCH (09:12)
[2019-06-07] MEDS: RiFAXimin* 550 MG TAB PO SCH (09:12)
[2019-06-07] MEDS: Cyanocobalamin TAB* 500 MCG PO SCH (09:12)
[2019-06-07] MEDS: Furosemide TAB* 20 MG PO SCH (09:12)
[2019-06-07] MEDS: Fluticasone NASAL SPRAY 50MCG* 16 gm SPRAY BTL BOTH NARES SCH (09:16)
[2019-06-07 12:24] VITALS: BP 124/49
== END 2019-06-07 14:50 | DRG 871 ==
LOC: ED 12:44 → MEDTELE 18:34
PROVIDERS: ADMIT Internal Medicine; ATTEND Internal Medicine
DX: A41.51 Sepsis due to Escherichia coli [E. coli] (principal); G93.41 Metabolic encephalopathy; N39.0 Urinary tract infection, site not specified; K76.6 Portal hypertension; N17.9 Acute kidney failure, unspecified; R18.8 Other ascites; R47.01 Aphasia; K52.1 Toxic gastroenteritis and colitis; K72.90 Hepatic failure, unspecified without coma; R65.20 Severe sepsis without septic shock; E86.0 Dehydration; E11.9 Type 2 diabetes mellitus without complications; J45.909 Unspecified asthma, uncomplicated; I10 Essential (primary) hypertension; E78.5 Hyperlipidemia, unspecified; E03.9 Hypothyroidism, unspecified; H91.91 Unspecified hearing loss, right ear; K75.81 Nonalcoholic steatohepatitis (NASH); D69.6 Thrombocytopenia, unspecified; K74.60 Unspecified cirrhosis of liver; E66.9 Obesity, unspecified; E87.5 Hyperkalemia; K64.9 Unspecified hemorrhoids; D51.9 Vitamin B12 deficiency anemia, unspecified; R68.0 Hypothermia, not associated with low environmental temperature; T47.3X5A Adverse effect of saline and osmotic laxatives, initial encounter; Y92.239 Unspecified place in hospital as the place of occurrence of the external cause; Z88.6 Allergy status to analgesic agent; Z88.8 Allergy status to other drugs, medicaments and biological substances; Z68.29 Body mass index [BMI] 29.0-29.9, adult; Z85.05 Personal history of malignant neoplasm of liver; Z92.3 Personal history of irradiation; Z79.51 Long term (current) use of inhaled steroids; Z79.899 Other long term (current) drug therapy; Z79.84 Long term (current) use of oral hypoglycemic drugs
CPT/HCPCS: 36415; 70450; 71045; 74176; 80048; 80053; 80307; 80320; 80329; 81003; 81015; 82140; 82270; 82272; 82550; 82607; 82746; 82803; 83605; 83735; 84443; 84484; 85025; 85060; 85610; 86140; 86850; 86900; 86901; 87040; 87077; 87086; 87186; 93005; 94640; 96365; 99285; A9270-GY; G0480; J0696; J1644

== ENCOUNTER 2020-02-11 11:04 | Inpatient (IN) ==
[2020-02-11 13:50] LABS: Activated Partial Thrombo Time 23.7 seconds (26.0-38.0); INR 1.27 (0.82-1.09)
[2020-02-11 13:55] LABS: Albumin/Globulin Ratio 0.8 (1-3); BUN/Creatinine Ratio 12.7 (8-20); EGFR African American 5.7 (>60); EGFR Non-African American 4.7 (>60); Globulin 3.9 g/dL (2-4); Total Bilirubin 1.6 mg/dL (0.2-1.0); Total Protein 6.9 g/dL (6.4-8.9)
[2020-02-11 13:58] LABS: Potassium 5.2 mmol/L (3.5-5.0)
[2020-02-11 14:53] LABS: ABS Lymphocytes 0.6 10^3/ul (1.0-4.8); ABS Monocytes 0.6 10^3/ul (0-0.8); Eosinophil % 0.5 %; Hematocrit 31 % (35-47); Hemoglobin 10.4 g/dL (12.0-16.0); Lymphocyte % 8.1 %; Mean Corpuscular HGB Conc 34 g/dL (31-36); Mean Corpuscular Hemoglobin 37 pg (27-31); Mean Corpuscular Volume 111 fL (80-97); Mean Platelet Volume 9.2 fL (7.4-10.4); Nucleated Red Blood Cells % 0.1; Platelet Count 134 10^3/uL (150-450); Red Blood Count 2.79 10^6 /uL (3.70-4.87); Red Cell Distribution Width 14 % (10-15); White Blood Count 7.3 10^3/uL (3.5-10.8)
[2020-02-11 17:40] LABS: Urine Appearance Turbid; Urine Bilirubin Negative (Negative); Urine Blood 1+ (Negative); Urine Color Yellow; Urine Glucose Negative (Negative); Urine Ketones Negative (Negative); Urine Nitrite Negative (Negative); Urine Protein 1+(30 mg/dL) (Negative); Urine Specific Gravity 1.012 (1.010-1.030); Urine Urobilinogen Negative (Negative)
[2020-02-11 17:43] LABS: Urine Bacteria 1+ (Absent); Urine Red Blood Cell Trace(0-2/hpf) (Absent); Urine White Blood Cell 3+(>20/hpf) (Absent)
[2020-02-11] MEDS ORDERED: Fluticasone NASAL SPRAY 50MCG 16 gm SPRAY BTL BOTH NARES PRN (17:53)
[2020-02-11] MEDS ORDERED: Sodium Bicarb 8.4% Vial 50 ML 150 MEQ in D5W 1000 ml BAG 850 ML IV SCH (18:00)
[2020-02-11 18:52] LABS: C Reactive Protein 35.41 mg/L (<8.01)
[2020-02-11] MEDS ORDERED: Albuterol HFA INHALER 8 gm MDI INH PRN (21:12)
[2020-02-11] MEDS: Heparin 5000 UNITS/ML 1 mL VIAL SUBCUT SCH (22:23)
[2020-02-11] MEDS: Sodium Bicarb 650 mg (ANTACID) TAB PO SCH (22:24)
[2020-02-11] MEDS: Lactulose 30 ml UDC PO SCH (22:24)
[2020-02-11] MEDS: Mometasone/Formoter 200/5 MDI INH SCH (22:30)
[2020-02-12] MEDS: Heparin 5000 UNITS/ML 1 mL VIAL SUBCUT SCH ×3 (05:53→21:32)
[2020-02-12 06:01] LABS: ABS Lymphocytes 0.8 10^3/ul (1.0-4.8); ABS Monocytes 0.8 10^3/ul (0-0.8); ABS Neutrophils 5.7 10^3/ul (1.5-7.7); Eosinophil % 0.6 %; Hematocrit 27 % (35-47); Hemoglobin 9.2 g/dL (12.0-16.0); Lymphocyte % 10.7 %; Mean Corpuscular HGB Conc 34 g/dL (31-36); Mean Corpuscular Hemoglobin 38 pg (27-31); Mean Corpuscular Volume 111 fL (80-97); Mean Platelet Volume 9.3 fL (7.4-10.4); Platelet Count 101 10^3/uL (150-450); Red Blood Count 2.44 10^6 /uL (3.70-4.87); Red Cell Distribution Width 14 % (10-15); White Blood Count 7.3 10^3/uL (3.5-10.8)
[2020-02-12 06:19] LABS: Albumin 2.5 g/dL (3.2-5.2); Albumin/Globulin Ratio 0.8 (1-3); BUN/Creatinine Ratio 13.4 (8-20); Calcium 8.6 mg/dL (8.6-10.3); EGFR African American 5.4 (>60); EGFR Non-African American 4.5 (>60); Globulin 3.3 g/dL (2-4); Total Bilirubin 1.5 mg/dL (0.2-1.0); Total Protein 5.8 g/dL (6.4-8.9)
[2020-02-12 06:39] LABS: Potassium 5.3 mmol/L (3.5-5.0)
[2020-02-12] MEDS: Mometasone/Formoter 200/5 MDI INH SCH ×2 (08:14→20:36)
[2020-02-12] MEDS ORDERED: Patiromer POWDER 8.4 GM PAK PO SCH (09:00)
[2020-02-12] MEDS: cefTRIAXone 1 gm/50 mL NS BAG 1 GM/50 ML BAG IVPB SCH (09:41)
[2020-02-12] MEDS: Lactulose 30 ml UDC PO SCH ×3 (10:15→21:31)
[2020-02-12] MEDS: Sodium Bicarb 650 mg (ANTACID) TAB PO SCH (10:17)
[2020-02-12 10:57] LABS: Troponin I 0.03 ng/mL (<0.03)
[2020-02-12 11:03] LABS: Hepatitis C Antibody Negative (Negative)
[2020-02-12] MEDS ORDERED: Lidocaine 1% VIAL 10 MG/ML VIAL ONE (13:38)
[2020-02-12] MEDS ORDERED: Heparin 2 UNITS/ML 1000 mls 1,000 ML IV ONE (13:38)
[2020-02-12] MEDS ORDERED: Ondansetron 4 mg VIAL 2 MG/ML 2 ml VIAL ONE (13:45)
[2020-02-12] MEDS ORDERED: Midazolam 5 mg/5 ml VIAL 1 mg/ml 5 ml VIAL (5 mg) ONE (13:50)
[2020-02-12] MEDS ORDERED: Clindamycin 600 MG/D5W BAG IV ONE (14:00)
[2020-02-12] MEDS ORDERED: Heparin 1,000 UNIT/ML 10 ml (10,000 UNITS) CATHLAB/DIALYSIS DIALYSIS ONE (15:00)
[2020-02-12] MEDS ORDERED: Albumin Human 25% 12.5 GM/50 ML BTL IV PRN (15:56)
[2020-02-12 16:21] LABS: Hepatitis B Surface Antigen Nonreactive (Nonreactive)
[2020-02-12 16:39] LABS: Hepatitis B Surface Ab Not Immune (Immune)
[2020-02-12] MEDS ORDERED: Dextrose 50% Syringe 50 ml 25 GM/50 ML SYRINGE IV PUSH PRN (17:07)
[2020-02-13 07:00] LABS: Albumin 2.4 g/dL (3.2-5.2); Albumin/Globulin Ratio 0.8 (1-3); BUN/Creatinine Ratio 12.8 (8-20); Calcium 8.1 mg/dL (8.6-10.3); EGFR African American 6.3 (>60); EGFR Non-African American 5.2 (>60); Globulin 3.1 g/dL (2-4); Total Bilirubin 1.1 mg/dL (0.2-1.0); Total Protein 5.5 g/dL (6.4-8.9)
[2020-02-13 07:02] LABS: Potassium 5.2 mmol/L (3.5-5.0)
[2020-02-13] MEDS: Heparin 5000 UNITS/ML 1 mL VIAL SUBCUT SCH ×2 (07:23→20:38)
[2020-02-13] MEDS ORDERED: Heparin 1,000 UNIT/ML 10 ml (10,000 UNITS) CATHLAB/DIALYSIS DIALYSIS ONE (08:00)
[2020-02-13 08:07] LABS: Body Fluid Source Peritonial Fluid
[2020-02-13] MEDS: Mometasone/Formoter 200/5 MDI INH SCH ×2 (08:17→21:00)
[2020-02-13] MEDS: Lactulose 30 ml UDC PO SCH ×3 (09:03→20:38)
[2020-02-13 11:09] LABS: Body Fluid Mono 67 %; Body Fluid Other Cells 3
[2020-02-13] MEDS: cefTRIAXone 1 gm/50 mL NS BAG 1 GM/50 ML BAG IVPB SCH (11:47)
[2020-02-13] MEDS: Ondansetron 4 mg VIAL 2 MG/ML 2 ml VIAL IV PRN (20:36)
[2020-02-14 06:28] LABS: ABS Eosinophils 0.1 10^3/ul (0-0.6); ABS Lymphocytes 0.8 10^3/ul (1.0-4.8); ABS Monocytes 1.1 10^3/ul (0-0.8); Eosinophil % 1.2 %; Hematocrit 25 % (35-47); Hemoglobin 8.7 g/dL (12.0-16.0); Lymphocyte % 10.2 %; Mean Corpuscular HGB Conc 35 g/dL (31-36); Mean Corpuscular Hemoglobin 38 pg (27-31); Mean Corpuscular Volume 109 fL (80-97); Nucleated Red Blood Cells % 0.1; Platelet Count 94 10^3/uL (150-450); Red Cell Distribution Width 14 % (10-15)
[2020-02-14 06:45] LABS: Calcium 7.8 mg/dL (8.6-10.3); EGFR African American 7.5 (>60); EGFR Non-African American 6.2 (>60); Potassium 4.3 mmol/L (3.5-5.0)
[2020-02-14] MEDS: Mometasone/Formoter 200/5 MDI INH SCH ×2 (07:45→20:10)
[2020-02-14] MEDS: Ondansetron 4 mg VIAL 2 MG/ML 2 ml VIAL IV PRN ×2 (08:29→20:19)
[2020-02-14] MEDS: cefTRIAXone 1 gm/50 mL NS BAG 1 GM/50 ML BAG IVPB SCH (08:31)
[2020-02-14] MEDS: Lactulose 30 ml UDC PO SCH ×3 (08:31→20:36)
[2020-02-14] MEDS: Heparin 5000 UNITS/ML 1 mL VIAL SUBCUT SCH ×2 (08:37→20:37)
[2020-02-14 14:11] LABS: Free T4 0.86 ng/dL (0.61-1.12)
[2020-02-14 15:11] LABS: Albumin, BF 0.3 g/dL; Fluid Type, Albumin PERITONEAL; Fluid Type, Protein, Total PERITONEAL
[2020-02-15 06:46] LABS: Anion Gap 12 mmol/L (2-11); BUN/Creatinine Ratio 10.3 (8-20); Blood Urea Nitrogen 77 mg/dL (6-24); CO2 Carbon Dioxide 19 mmol/L (22-32); Calcium 7.7 mg/dL (8.6-10.3); Chloride 105 mmol/L (101-111); EGFR African American 6.4 (>60); EGFR Non-African American 5.3 (>60); Glucose 125 mg/dL (70-100); Potassium 4.1 mmol/L (3.5-5.0); Sodium 136 mmol/L (135-145)
[2020-02-15 07:42] LABS: % Iron Saturation 22 % (15-55); Iron 46 ug/dL (50-212); Total Iron Binding Capacity 213 mcg/dL (250-450); Transferrin 152 mg/dL (203-362); Unsaturated Iron Binding < 198 ug/dL
[2020-02-15] MEDS ORDERED: Albumin Human 25% 12.5 GM/50 ML BTL IV PRN (07:43)
[2020-02-15] MEDS ORDERED: Heparin 1,000 UNIT/ML 10 ml (10,000 UNITS) CATHLAB/DIALYSIS DIALYSIS ONE (08:00)
[2020-02-15 08:09] LABS: Folate 9.39 ng/mL (>3.99)
[2020-02-15 08:10] LABS: Vitamin B12 > 1450 pg/mL (180-914)
[2020-02-15] MEDS: Mometasone/Formoter 200/5 MDI INH SCH ×2 (09:11→19:56)
[2020-02-15 11:50] LABS: ABS Eosinophils 0.1 10^3/ul (0-0.6); ABS Lymphocytes 0.6 10^3/ul (1.0-4.8); ABS Monocytes 0.7 10^3/ul (0-0.8); ABS Neutrophils 7.9 10^3/ul (1.5-7.7); Eosinophil % 1.4 %; Hematocrit 28 % (35-47); Hemoglobin 9.7 g/dL (12.0-16.0); Lymphocyte % 6.4 %; Mean Corpuscular HGB Conc 35 g/dL (31-36); Mean Corpuscular Hemoglobin 38 pg (27-31); Mean Corpuscular Volume 109 fL (80-97); Mean Platelet Volume 8.8 fL (7.4-10.4); Nucleated Red Blood Cells % 0.2; Platelet Count 97 10^3/uL (150-450); Red Blood Count 2.57 10^6 /uL (3.70-4.87); Red Cell Distribution Width 14 % (10-15); White Blood Count 9.4 10^3/uL (3.5-10.8)
[2020-02-15] MEDS: cefTRIAXone 1 gm/50 mL NS BAG 1 GM/50 ML BAG IVPB SCH (11:52)
[2020-02-15] MEDS: Heparin 5000 UNITS/ML 1 mL VIAL SUBCUT SCH ×2 (11:53→22:14)
[2020-02-15] MEDS: Lactulose 30 ml UDC PO SCH ×3 (11:56→22:14)
[2020-02-15 12:50] LABS: Urine Creatinine 114.01 mg/dL; Urine Creatinine Concentration 114.01 mg/dL
[2020-02-15 13:10] LABS: UR Microalbumin (mg/L) 839.8 mg/L; Urine Microalbumin/Creatinine 736.6 (<31)
[2020-02-15 14:37] LABS: Creatine Kinase 79 U/L (10-223)
[2020-02-15 18:00] LABS: Kappa Free Light Chain 11.8 mg/dL; Lambda Free Light Chain 14.7 mg/dL
[2020-02-15 20:02] LABS: Complement C3 53 mg/dL (75 - 175)
[2020-02-16 08:16] LABS: BUN/Creatinine Ratio 8.3 (8-20); Calcium 7.7 mg/dL (8.6-10.3); EGFR African American 8.4 (>60); EGFR Non-African American 6.9 (>60); Potassium 3.8 mmol/L (3.5-5.0)
[2020-02-16] MEDS: Mometasone/Formoter 200/5 MDI INH SCH ×2 (08:28→20:42)
[2020-02-16] MEDS: Heparin 5000 UNITS/ML 1 mL VIAL SUBCUT SCH ×2 (08:56→20:48)
[2020-02-16] MEDS: Lactulose 30 ml UDC PO SCH ×3 (09:00→20:50)
[2020-02-16] MEDS: cefTRIAXone 1 gm/50 mL NS BAG 1 GM/50 ML BAG IVPB SCH (09:09)
[2020-02-16 11:01] LABS: ABS Eosinophils 0.2 10^3/ul (0-0.6); ABS Lymphocytes 0.9 10^3/ul (1.0-4.8); ABS Monocytes 1.9 10^3/ul (0-0.8); ABS Neutrophils 8.1 10^3/ul (1.5-7.7); Eosinophil % 1.9 %; Hematocrit 28 % (35-47); Hemoglobin 9.3 g/dL (12.0-16.0); Lymphocyte % 8.1 %; Mean Corpuscular HGB Conc 34 g/dL (31-36); Mean Corpuscular Hemoglobin 37 pg (27-31); Mean Corpuscular Volume 110 fL (80-97); Mean Platelet Volume 8.9 fL (7.4-10.4); Nucleated Red Blood Cells % 0.1; Platelet Count 74 10^3/uL (150-450); Red Blood Count 2.52 10^6 /uL (3.70-4.87); Red Cell Distribution Width 14 % (10-15); White Blood Count 11.2 10^3/uL (3.5-10.8)
[2020-02-17 07:11] LABS: BUN/Creatinine Ratio 8.2 (8-20); Calcium 7.7 mg/dL (8.6-10.3); EGFR African American 7.2 (>60); Potassium 3.5 mmol/L (3.5-5.0)
[2020-02-17 07:20] LABS: Hematocrit 26 % (35-47); Hemoglobin 8.8 g/dL (12.0-16.0); Mean Corpuscular HGB Conc 34 g/dL (31-36); Mean Corpuscular Hemoglobin 37 pg (27-31); Mean Corpuscular Volume 110 fL (80-97); Mean Platelet Volume 9.2 fL (7.4-10.4); Platelet Count 67 10^3/uL (150-450); Red Blood Count 2.37 10^6 /uL (3.70-4.87); Red Cell Distribution Width 15 % (10-15)
[2020-02-17] MEDS: Mometasone/Formoter 200/5 MDI INH SCH ×2 (08:24→21:07)
[2020-02-17] MEDS: cefTRIAXone 1 gm/50 mL NS BAG 1 GM/50 ML BAG IVPB SCH (08:43)
[2020-02-17] MEDS: Heparin 5000 UNITS/ML 1 mL VIAL SUBCUT SCH (08:49)
[2020-02-17] MEDS: Lactulose 30 ml UDC PO SCH ×3 (08:52→20:33)
[2020-02-17 09:38] LABS: Polychromasia 1+
[2020-02-17 10:15] LABS: ABS Eosinophils 0.2 10^3/ul (0-0.6); ABS Lymphocytes 0.7 10^3/ul (1.0-4.8); ABS Monocytes 2.2 10^3/ul (0-0.8); ABS Neutrophils 7.9 10^3/ul (1.5-7.7)
[2020-02-17 10:32] LABS: ABS Eosinophils 0.2 10^3/ul (0-0.6); ABS Neutrophils 7.9 10^3/ul (1.5-7.7)
[2020-02-17 10:57] LABS: Eosinophil % 1.6 %; Lymphocyte % 6.4 %; Nucleated Red Blood Cells % 0.1
[2020-02-17] MEDS: Witch Hazel PAD JAR TOPICAL SCH (13:32)
[2020-02-18] MEDS ORDERED: Albumin Human 25% 25 GM/100 ML IV PRN (07:39)
[2020-02-18] MEDS ORDERED: Heparin 1,000 UNIT/ML 10 ml (10,000 UNITS) CATHLAB/DIALYSIS DIALYSIS ONE (08:00)
[2020-02-18] MEDS: Mometasone/Formoter 200/5 MDI INH SCH ×2 (08:39→21:08)
[2020-02-18 08:47] LABS: ABS Basophils 0.1 10^3/ul (0-0.2); ABS Eosinophils 0.2 10^3/ul (0-0.6); ABS Lymphocytes 0.6 10^3/ul (1.0-4.8); ABS Monocytes 1.5 10^3/ul (0-0.8); ABS Neutrophils 8.4 10^3/ul (1.5-7.7); Eosinophil % 1.8 %; Hematocrit 28 % (35-47); Hemoglobin 9.1 g/dL (12.0-16.0); Mean Corpuscular HGB Conc 33 g/dL (31-36); Mean Corpuscular Hemoglobin 37 pg (27-31); Mean Corpuscular Volume 111 fL (80-97); Mean Platelet Volume 9.2 fL (7.4-10.4); Nucleated Red Blood Cells % 0.1; Platelet Count 75 10^3/uL (150-450); Red Blood Count 2.48 10^6 /uL (3.70-4.87); Red Cell Distribution Width 15 % (10-15); White Blood Count 10.8 10^3/uL (3.5-10.8)
[2020-02-18 08:51] LABS: BUN/Creatinine Ratio 7.9 (8-20); EGFR African American 5.9 (>60); EGFR Non-African American 4.9 (>60); Potassium 3.9 mmol/L (3.5-5.0)
[2020-02-18] MEDS ORDERED: Albumin Human 25% 12.5 GM/50 ML BTL IV PRN (11:00)
[2020-02-18] MEDS: Witch Hazel PAD JAR TOPICAL SCH (11:48)
[2020-02-18 12:31] LABS: INR 1.29 (0.82-1.09)
[2020-02-18] MEDS: Lactulose 30 ml UDC PO SCH ×3 (12:31→20:55)
[2020-02-18] MEDS: cefTRIAXone 1 gm/50 mL NS BAG 1 GM/50 ML BAG IVPB SCH (12:32)
[2020-02-18 14:37] LABS: Albumin 2.3 g/dL (3.4-4.7); Albumin/Globulin Ratio 0.85; Gamma Globulin 1.5 g/dL (0.6-1.6); Total Protein(PEP) 5.1 g/dL (6.3 - 7.9)
[2020-02-19 06:47] LABS: BUN/Creatinine Ratio 7.1 (8-20); Calcium 7.7 mg/dL (8.6-10.3); EGFR African American 8.1 (>60); EGFR Non-African American 6.7 (>60); Potassium 3.9 mmol/L (3.5-5.0)
[2020-02-19 07:32] LABS: ABS Eosinophils 0.3 10^3/ul (0-0.6); ABS Lymphocytes 0.8 10^3/ul (1.0-4.8); ABS Monocytes 1.8 10^3/ul (0-0.8); Eosinophil % 2.9 %; Hematocrit 27 % (35-47); Hemoglobin 8.9 g/dL (12.0-16.0); Lymphocyte % 7.3 %; Mean Corpuscular HGB Conc 33 g/dL (31-36); Mean Corpuscular Hemoglobin 37 pg (27-31); Mean Corpuscular Volume 111 fL (80-97); Mean Platelet Volume 9.9 fL (7.4-10.4); Nucleated Red Blood Cells % 0.1; Platelet Count 74 10^3/uL (150-450); Red Cell Distribution Width 15 % (10-15)
[2020-02-19] MEDS: Mometasone/Formoter 200/5 MDI INH SCH ×2 (08:35→20:15)
[2020-02-19] MEDS: Lactulose 30 ml UDC PO SCH ×3 (09:15→21:42)
[2020-02-19] MEDS: Witch Hazel PAD JAR TOPICAL SCH (09:16)
[2020-02-19 12:27] LABS: Urine Appearance Turbid; Urine Bilirubin Negative (Negative); Urine Blood 3+ (Negative); Urine Color Amber; Urine Glucose 1+(50 mg/dL) (Negative); Urine Ketones Negative (Negative); Urine Nitrite Negative (Negative); Urine Protein 2+(100 mg/dL) (Negative); Urine Specific Gravity 1.016 (1.010-1.030); Urine Urobilinogen Negative (Negative)
[2020-02-19 12:31] LABS: Urine Bacteria Absent (Absent); Urine Red Blood Cell 3+(>10/hpf) (Absent); Urine Squamous Epithelial Cell Present (Absent); Urine White Blood Cell 3+(>20/hpf) (Absent)
[2020-02-19 12:44] LABS: Urine Creatinine 172.86 mg/dL; Urine Creatinine Concentration 172.86 mg/dL
[2020-02-19 13:03] LABS: UR Microalbumin (mg/L) 950.2 mg/L; Urine Microalbumin/Creatinine 549.6 (<31)
[2020-02-20] MEDS ORDERED: Albumin Human 25% 12.5 GM/50 ML BTL IV PRN (07:04)
[2020-02-20] MEDS ORDERED: Heparin 1,000 UNIT/ML 10 ml (10,000 UNITS) CATHLAB/DIALYSIS DIALYSIS ONE (08:00)
[2020-02-20] MEDS: Mometasone/Formoter 200/5 MDI INH SCH (08:37)
[2020-02-20 12:20] VITALS: BP 124/62
[2020-02-20] MEDS: Lactulose 30 ml UDC PO SCH ×2 (12:23→13:50)
[2020-02-20] MEDS: Witch Hazel PAD JAR TOPICAL SCH (12:27)
== END 2020-02-20 14:35 | DRG 674 ==
LOC: ED 11:04 → MEDTELE 17:49
PROVIDERS: ADMIT Internal Medicine; ATTEND Internal Medicine

== ENCOUNTER 2020-05-14 06:11 | Inpatient (IN) ==
[2020-05-14 07:12] LABS: Hematocrit 32 % (35-47); Mean Corpuscular HGB Conc 34 g/dL (31-36); Mean Corpuscular Hemoglobin 37 pg (27-31); Platelet Count 114 10^3/uL (150-450); Red Blood Count 2.95 10^6 /uL (3.70-4.87); Red Cell Distribution Width 15 % (10-15); White Blood Count 8.3 10^3/uL (3.5-10.8)
[2020-05-14 07:24] LABS: ALT 20 U/L (7-52); AST 38 U/L (13-39); Albumin 2.6 g/dL (3.2-5.2); Albumin/Globulin Ratio 0.7 (1-3); Alkaline Phosphatase 176 U/L (34-104); Anion Gap 11 mmol/L (2-11); BUN/Creatinine Ratio 9.5 (8-20); Blood Urea Nitrogen 63 mg/dL (6-24); CO2 Carbon Dioxide 23 mmol/L (22-32); Calcium 8.3 mg/dL (8.6-10.3); Chloride 100 mmol/L (101-111); EGFR African American 7.3 (>60); Globulin 3.8 g/dL (2-4); Glucose 211 mg/dL (70-100); Potassium 4.4 mmol/L (3.5-5.0); Sodium 134 mmol/L (135-145); Total Protein 6.4 g/dL (6.4-8.9)
[2020-05-14 07:37] LABS: ABS Eosinophils 0.1 10^3/ul (0-0.6); ABS Lymphocytes 0.9 10^3/ul (1.0-4.8); ABS Monocytes 0.7 10^3/ul (0-0.8); ABS Neutrophils 6.5 10^3/ul (1.5-7.7); Eosinophil % 1.6 %; Lymphocyte % 10.6 %; Mean Corpuscular Volume 110 fL (80-97)
[2020-05-14] MEDS ORDERED: Lactulose 30 ml UDC PO ONE (07:52)
[2020-05-14 07:53] LABS: Troponin I 0.03 ng/mL (<0.03)
[2020-05-14 08:00] LABS: TSH Ultra Thyroid Stim Horm 2.97 mcIU/mL (0.34-5.60)
[2020-05-14] MEDS ORDERED: NS 0.9% 1000 ml BAG 1,000 ML IV SCH (08:00)
[2020-05-14 08:24] LABS: C Reactive Protein 24.01 mg/L (<8.01)
[2020-05-14] MEDS ORDERED: Witch Hazel PAD JAR TOPICAL PRN (09:17)
[2020-05-14] MEDS ORDERED: Albuterol HFA INHALER 8 gm MDI INH PRN (10:05)
[2020-05-14 10:31] LABS: INR 1.47 (0.82-1.09)
[2020-05-14] MEDS: cefTRIAXone 1 gm/50 mL NS BAG 1 GM/50 ML BAG IVPB SCH (12:03)
[2020-05-14] MEDS ORDERED: Dextrose 50% Syringe 50 ml 25 GM/50 ML SYRINGE IV PUSH PRN (12:44)
[2020-05-14] MEDS: Heparin 5000 UNITS/ML 1 mL VIAL SUBCUT SCH ×2 (13:36→20:58)
[2020-05-14] MEDS: Lactulose 30 ml UDC PO SCH ×2 (13:36→20:59)
[2020-05-14 15:15] LABS: Urine Appearance Turbid; Urine Bilirubin Negative (Negative); Urine Blood 1+ (Negative); Urine Color Amber; Urine Glucose Negative (Negative); Urine Ketones Negative (Negative); Urine Nitrite Negative (Negative); Urine Protein 1+(30 mg/dL) (Negative); Urine Specific Gravity 1.013 (1.010-1.030); Urine Urobilinogen Negative (Negative)
[2020-05-14 15:23] LABS: Urine Bacteria 3+ (Absent); Urine Red Blood Cell 1+(3-5/hpf) (Absent); Urine Squamous Epithelial Cell Present (Absent); Urine White Blood Cell 3+(>20/hpf) (Absent)
[2020-05-14] MEDS: Mometasone/Formoter 200/5 MDI INH SCH (20:07)
[2020-05-15] MEDS: Heparin 5000 UNITS/ML 1 mL VIAL SUBCUT SCH ×3 (05:01→20:12)
[2020-05-15 06:43] LABS: INR 1.55 (0.82-1.09)
[2020-05-15 06:44] LABS: ABS Basophils 0.1 10^3/ul (0-0.2); ABS Eosinophils 0.6 10^3/ul (0-0.6); ABS Lymphocytes 0.9 10^3/ul (1.0-4.8); ABS Monocytes 1.3 10^3/ul (0-0.8); ABS Neutrophils 5.8 10^3/ul (1.5-7.7); Hematocrit 30 % (35-47); Mean Corpuscular HGB Conc 34 g/dL (31-36); Mean Corpuscular Hemoglobin 37 pg (27-31); Mean Corpuscular Volume 110 fL (80-97); Mean Platelet Volume 9.2 fL (7.4-10.4); Platelet Count 122 10^3/uL (150-450); Red Blood Count 2.71 10^6 /uL (3.70-4.87); Red Cell Distribution Width 16 % (10-15); White Blood Count 8.6 10^3/uL (3.5-10.8)
[2020-05-15] MEDS ORDERED: Heparin 1,000 UNIT/ML 10 ml (10,000 UNITS) CATHLAB/DIALYSIS DIALYSIS ONE (07:00)
[2020-05-15 07:01] LABS: Albumin 2.5 g/dL (3.2-5.2); Albumin/Globulin Ratio 0.7 (1-3); BUN/Creatinine Ratio 9.8 (8-20); EGFR African American 6.2 (>60); EGFR Non-African American 5.1 (>60); Globulin 3.5 g/dL (2-4); Potassium 3.7 mmol/L (3.5-5.0); Total Bilirubin 1.5 mg/dL (0.2-1.0)
[2020-05-15] MEDS: Mometasone/Formoter 200/5 MDI INH SCH ×2 (08:08→20:01)
[2020-05-15] MEDS: Lactulose 30 ml UDC PO SCH ×3 (12:35→20:12)
[2020-05-15] MEDS: cefTRIAXone 1 gm/50 mL NS BAG 1 GM/50 ML BAG IVPB SCH (14:08)
[2020-05-16] MEDS: Heparin 5000 UNITS/ML 1 mL VIAL SUBCUT SCH ×2 (05:11→13:19)
[2020-05-16 06:03] LABS: ABS Basophils 0.1 10^3/ul (0-0.2); ABS Eosinophils 0.7 10^3/ul (0-0.6); ABS Monocytes 1.3 10^3/ul (0-0.8); ABS Neutrophils 6.2 10^3/ul (1.5-7.7); Eosinophil % 7.5 %; Hematocrit 29 % (35-47); Hemoglobin 9.8 g/dL (12.0-16.0); Lymphocyte % 11.1 %; Mean Corpuscular HGB Conc 34 g/dL (31-36); Mean Corpuscular Hemoglobin 37 pg (27-31); Mean Corpuscular Volume 108 fL (80-97); Mean Platelet Volume 8.9 fL (7.4-10.4); Platelet Count 100 10^3/uL (150-450); Red Blood Count 2.66 10^6 /uL (3.70-4.87); Red Cell Distribution Width 15 % (10-15); White Blood Count 9.3 10^3/uL (3.5-10.8)
[2020-05-16 06:19] LABS: BUN/Creatinine Ratio 9.4 (8-20); Calcium 7.6 mg/dL (8.6-10.3); EGFR Non-African American 7.4 (>60); Potassium 3.7 mmol/L (3.5-5.0)
[2020-05-16] MEDS: Mometasone/Formoter 200/5 MDI INH SCH (09:05)
[2020-05-16] MEDS ORDERED: NS 0.9% 250 ml 250 ML IVPB PRN (09:15)
[2020-05-16] MEDS ORDERED: Albumin Human 25% 12.5 GM/50 ML BTL IV PRN (09:16)
[2020-05-16] MEDS ORDERED: Heparin 1,000 UNIT/ML 10 ml (10,000 UNITS) CATHLAB/DIALYSIS DIALYSIS ONE (10:00)
[2020-05-16] MEDS: cefTRIAXone 1 gm/50 mL NS BAG 1 GM/50 ML BAG IVPB SCH (13:18)
[2020-05-16] MEDS: Lactulose 30 ml UDC PO SCH ×2 (13:25→15:38)
[2020-05-16 17:51] VITALS: BP 89/44
[2020-05-17 16:55] LABS: Hepatitis B Surface Antigen Nonreactive (Nonreactive)
[2020-05-17 17:12] LABS: Hepatitis B Surface Ab Not Immune (Immune)
== END 2020-05-16 15:50 | DRG 441 ==
LOC: ED 06:11 → MEDTELE 09:10
PROVIDERS: ADMIT Internal Medicine; ATTEND Internal Medicine